=== PATIENT | female | born 1990 | race Caucasian/White ===

== ENCOUNTER 2020-11-02 10:43 | Outpatient (REF) | payer OTHER, SELFPAY ==
[2020-11-02 12:20] LABS: Estimated Average Glucose 111 mg/dL; Hemoglobin A1c % 5.5 %
[2020-11-02 12:21] LABS: Anion Gap 14 (12-20); Blood Urea Nitrogen 13 mg/dL (9-16); Calcium 9.5 mg/dL (8.4-10.2); Carbon Dioxide 30 mmol/L (22-29); Chloride 101 mmol/L (96-108); Cholesterol 165 mg/dL; Estimated Glomerular Filt Rate > 60; Glucose Fasting 98 mg/dL (60-99); HDL Cholesterol 47 mg/dL; LDL Cholesterol Calculated 99 mg/dl; Potassium 4.5 mmol/l (3.3-5.1); Sodium 140 mmol/L (135-145); Triglycerides 99 mg/dL
[2020-11-02 12:42] LABS: Thyroid Stimulating Hormone 2.46 uIU/mL (0.32-4.0)
== END 2020-11-02 10:44 | disposition home or self-care (01) ==
LOC: HO.LAB 10:43
PROVIDERS: PCP Internal Medicine; Visit Provider Internal Medicine
DX: I10 Essential (primary) hypertension (principal); R73.9 Hyperglycemia, unspecified; E78.00 Pure hypercholesterolemia, unspecified
CPT/HCPCS: 36415; 80048; 80061; 83036; 84443

== ENCOUNTER 2020-11-29 08:52 | Outpatient (REF) | payer OTHER, SELFPAY ==
--- NOTE | ~2020-11-29 | US_ITS ---
EXAMINATION: US DIAGNOSTIC ULTRASOUND BREAST, RIGHT US DIAGNOSTIC ULTRASOUND BREAST, LEFT CLINICAL INFORMATION: 30-year-old with bilateral intermittent breast pain. No discharge or palpable mass. No family history breast cancer. COMPARISON: Diagnostic left breast ultrasound 03/28/2018. TECHNIQUE: Ultrasound of the breasts is performed with real-time phillip scale imaging and color Doppler. Exam is targeted to the areas of clinical concern, left axilla and 2:00-3:00; right axilla and 9:00-10:00. FINDINGS: Right: There is no focal suspicious finding. There is no cystic or solid mass, architectural abnormality, duct ectasia, or edema in the soft tissue planes. Left: There is no focal suspicious finding. There is no cystic or solid mass, architectural abnormality, duct ectasia, or edema in the soft tissue planes. Results are discussed with the patient at time of visit using an heel gouger. US/US breast RT limited IMPRESSION: Normal study. ASSESSMENT: BI-RADS 1: Negative RECOMMENDATION: 1. Patient's intermittent bilateral breast pain should be managed based on the clinical impression. 2. Otherwise, routine annual screening mammography, beginning age 40, or earlier as clinical risk factors warrant.
--- NOTE | ~2020-11-29 | US_ITS ---
EXAMINATION: US DIAGNOSTIC ULTRASOUND BREAST, RIGHT US DIAGNOSTIC ULTRASOUND BREAST, LEFT CLINICAL INFORMATION: 30-year-old with bilateral intermittent breast pain. No discharge or palpable mass. No family history breast cancer. COMPARISON: Diagnostic left breast ultrasound 03/28/2018. TECHNIQUE: Ultrasound of the breasts is performed with real-time phillip scale imaging and color Doppler. Exam is targeted to the areas of clinical concern, left axilla and 2:00-3:00; right axilla and 9:00-10:00. FINDINGS: Right: There is no focal suspicious finding. There is no cystic or solid mass, architectural abnormality, duct ectasia, or edema in the soft tissue planes. Left: There is no focal suspicious finding. There is no cystic or solid mass, architectural abnormality, duct ectasia, or edema in the soft tissue planes. Results are discussed with the patient at time of visit using an senior interior designer. US/US breast LT limited IMPRESSION: Normal study. ASSESSMENT: BI-RADS 1: Negative RECOMMENDATION: 1. Patient's intermittent bilateral breast pain should be managed based on the clinical impression. 2. Otherwise, routine annual screening mammography, beginning age 40, or earlier as clinical risk factors warrant.
== END 2020-11-29 08:53 | disposition home or self-care (01) ==
LOC: HO.MAMMO 08:52
PROVIDERS: PCP Internal Medicine; Visit Provider Internal Medicine
DX: N64.4 Mastodynia (principal)
CPT/HCPCS: 76642

== ENCOUNTER 2021-08-23 12:45 | Outpatient (REF) | payer OTHER, SELFPAY ==
[2021-08-24 10:09] LABS: CT PCR NOT DETECTED (Not Detect.); NG PCR NOT DETECTED (Not Detect.)
== END 2021-08-23 12:46 | disposition home or self-care (01) ==
LOC: HO.LAB 12:45
PROVIDERS: PCP Internal Medicine; Visit Provider Obstetrics & Gynecology
DX: Z01.419 Encounter for gynecological examination (general) (routine) without abnormal findings (principal); N93.9 Abnormal uterine and vaginal bleeding, unspecified; Z87.42 Personal history of other diseases of the female genital tract
CPT/HCPCS: 87491; 87591; 99212

== ENCOUNTER 2021-09-05 08:09 | Outpatient (REF) | payer OTHER, SELFPAY ==
--- NOTE | ~2021-09-05 | FL_ITS ---
EXAMINATION: FL UPPER GI AIR-CONTRAST STUDY CLINICAL INFORMATION: Unspecified asthma. COMPARISON: None. TECHNIQUE: Acute upper GI air-contrast study was performed in upright and lying position. FINDINGS: Following oral administration of thick barium and effervescent granules, there is normal propagation of bolus from the oral cavity, through the esophagus and into stomach without any evidence of obstruction, narrowing or stricture. On placing patient supine and prone lying, the course, caliber and peristalsis of stomach, duodenal bulb are normal. No gastroesophageal reflux or hiatal hernia visualized. The mucosal pattern of the esophagus, stomach and the duodenum is normal. FLUOROSCOPY TIME: 2.4 minutes. DOSE AREA PRODUCT: 68.972 uGy-m2 (microgray-meter squared). FL/FL upper GI series IMPRESSION: Unremarkable upper GI exam.
== END 2021-09-05 08:10 | disposition home or self-care (01) ==
LOC: HO.XRAY 08:09
PROVIDERS: Visit Provider Internal Medicine
DX: J45.909 Unspecified asthma, uncomplicated (principal); K21.9 Gastro-esophageal reflux disease without esophagitis
CPT/HCPCS: 74240

== ENCOUNTER 2021-09-06 12:57 | Outpatient (REF) | payer OTHER, SELFPAY ==
--- NOTE | ~2021-09-06 | US_ITS ---
EXAMINATION: US PELVIS CLINICAL INFORMATION: Abnormal bleeding COMPARISON: Previous pelvic ultrasound May 2018 TECHNIQUE: Ultrasound of the pelvis is performed using both transabdominal and transvaginal transducers along with Doppler. Transvaginal imaging is performed due to inadequate visualization transabdominally. Exam is limited due to patient body habitus. FINDINGS: The uterus is anteverted and measures 10.9 x 3.6 x 4.8 cm in dimension. No focal uterine lesion is seen. Endometrial thickness is normal measuring 0.6 cm. There are nabothian cysts in the cervix. The right ovary is not seen. The left ovary is normal-appearing and measures 2.5 x 2.3 x 1.9 cm. There is no fluid in the pelvis. US/US pelvic and transvaginal IMPRESSION: Limited exam. Normal-appearing uterus, endometrium and left ovary. Right ovary not seen.
== END 2021-09-06 12:58 | disposition home or self-care (01) ==
LOC: HO.US 12:57
PROVIDERS: Visit Provider Obstetrics & Gynecology
DX: N93.9 Abnormal uterine and vaginal bleeding, unspecified (principal)
CPT/HCPCS: 76830; 76856

== ENCOUNTER 2021-09-30 07:16 | Outpatient (REF) | payer OTHER, SELFPAY ==
[2021-09-30 08:30] LABS: Hemoglobin 7.9 g/dl (12.0-16.0); Imm Gran Abs Auto 0.03 X10*3/uL (0.00-0.03); Imm Gran Pct Auto 0.3 % (0.0-0.4); MANUAL DIFF FLAG SCAN; Monocytes Absolute Auto 0.6 X10*3/uL (0.1-1.2); Neutrophils Percent Auto 73.1 % (45-73); SCAN SMEAR FLAG 1
[2021-09-30 08:33] LABS: Basophils Absolute Auto 0.1 X10*3/uL (0.0-0.2); Basophils Percent Auto 0.5 % (0-2); Eosinophils Absolute Auto 0.4 X10*3/uL (0.0-0.4); Eosinophils Percent Auto 3.9 % (0-4); Hematocrit 31.3 % (37.0-47.0); Immature Retic Fraction 16.8 % (3.0-15.9); Lymphocytes Absolute Auto 1.5 X10*3/uL (1.2-4.9); Lymphocytes Percent Auto 16.1 % (20-40); Mean Corpuscular HGB Conc 25.2 g/dl (31.0-35.0); Mean Corpuscular Hemoglobin 15.8 pg (27.0-33.0); Monocytes Percent Auto 6.1 % (2-11); Neutrophils Absolute Auto 6.9 x10*3/uL (2.0-8.3); Platelet Count 467 X10*3/uL (160-400); Red Blood Count 5.01 X10*6/uL (4.20-5.50); Red Cell Distribution Width 21.2 % (11.0-16.0); Retic HGB Equivalent 15.9 pg (30.0-35.0); Reticulocytes Absolute 0.101 X10*6/uL (0.026-0.095); White Blood Count 9.4 X10*3/uL (4.8-10.8)
[2021-09-30 08:34] LABS: Mean Corpuscular Volume 62.5 fL (80.0-98.0); PLT ABN DIST 1
[2021-09-30 08:59] LABS: SLIDE REVIEW VERIFIED
[2021-09-30 09:11] LABS: Alanine Aminotransferase 14 U/L (0-31); Albumin Level 4.1 g/dL (3.5-5.0); Alkaline Phosphatase 80 U/L (39-117); Anion Gap 11 (12-20); Aspartate Amino Transferase 12 U/L (5-31); Bilirubin Total 0.3 mg/dL (0.0-1.0); Blood Urea Nitrogen 11 mg/dL (9-16); Calcium 9.8 mg/dL (8.4-10.2); Carbon Dioxide 29 mmol/L (22-29); Chloride 102 mmol/L (96-108); Cholesterol 147 mg/dL; Estimated Glomerular Filt Rate > 60; Glucose Random 103 mg/dL (60-115); HDL Cholesterol 40 mg/dL; Iron 15 mcg/dL (30-160); LDL Cholesterol Calculated 90 mg/dl; Percent Iron Saturation 3 % (15-50); Potassium 4.3 mmol/L (3.3-5.1); Sodium 138 mmol/L (135-145); Total Iron Binding Capacity 436 mcg/dL (228-428); Total Protein 7.8 g/dL (6.5-8.0); Triglycerides 89 mg/dL; Unsaturated Iron Binding 421 ug/dL
[2021-09-30 09:18] LABS: Ferritin 4 ng/mL (10-122); Thyroid Stimulating Hormone 2.13 uIU/mL (0.32-4.0); Vitamin D 25-OH Total 18.3 ng/mL (>30)
[2021-09-30 09:51] LABS: HCG Quantitative < 2 mIU/mL; TSH reflex Free T4 2.33 uIU/mL (0.32-4.0)
[2021-09-30 10:54] LABS: Folate 12.8 ng/mL (> or = 4.0); Vitamin B12 498 pg/mL (200-900)
[2021-09-30 14:00] LABS: Estimated Average Glucose 94 mg/dL; Hemoglobin A1c % 4.9 %
== END 2021-09-30 07:17 | disposition home or self-care (01) ==
LOC: HO.LAB 07:16
PROVIDERS: Absent Provider Obstetrics & Gynecology; PCP Internal Medicine; Visit Provider Internal Medicine
DX: D50.0 Iron deficiency anemia secondary to blood loss (chronic) (principal); R73.02 Impaired glucose tolerance (oral); N93.9 Abnormal uterine and vaginal bleeding, unspecified; I10 Essential (primary) hypertension; K21.9 Gastro-esophageal reflux disease without esophagitis; E78.00 Pure hypercholesterolemia, unspecified
CPT/HCPCS: 36415; 80053; 80061; 82306; 82607; 82728; 82746; 83036; 83540; 84439; 84443; 84702; 85025; 85045

== ENCOUNTER 2021-10-01 07:48 | Emergency (ER) | payer OTHER, SELFPAY ==
[2021-10-01] VITALS (7 sets, daily range): BP systolic 182–216; BP diastolic 88–106; PULSE 89–105; RESP 16–21; TEMP 36.4–36.9; O2SAT 98–100; BMI 49.4
--- NOTE | 2021-10-01 08:49 | ED.GENADULT ---
HPI - General Adult General Chief complaint: General Medical Stated complaint: low red blood count Time Seen by Provider: 10/01/21 08:05 Source: patient Mode of arrival: ambulatory Limitations: no limitations History of Present Illness HPI narrative: 31-year-old female with a history of menometrorrhagia, anemia, obesity, asthma, dysphagia, GERD who presents to the ER with low hemoglobin on routine blood work with Dr. Skinner yesterday. Her hemoglobin was 7.9. She reports her baseline hemoglobin is usually in the tender 11 range. She has been on p.o. iron and is taking progesterone for heavy uterine bleeding. She states her last menstrual cycle was end of July and early August. She reports her periods are regular and at times very very heavy other times are normal. She has nose chest pain, shortness of breath, fatigue, lightheadedness, dizziness. She had does have a cough at nighttime that Dr. Skinner told her could be due to her anemia. MD complaint: low hemoglobin Severity: mild Relieving factors: none Exacerbating factors: other (night - cough) Associated symptoms: denies other symptoms Treatments prior to arrival: none Related Data Home Medications Medication Instructions Recorded Confirmed ascorbate calcium (vitamin C) 500 500 mg PO DAILY 08/04/20 08/05/21 mg tablet famotidine 20 mg tablet (Pepcid) 20 mg PO DAILY 08/04/20 08/05/21 ferrous sulfate 325 mg (65 mg 325 mg PO DAILY 08/04/20 08/05/21 iron) tablet (Feosol) Previous Rx's Medication Instructions Recorded diphenhydramine HCl 25 mg tablet 25 mg PO BEDTIME PRN 30 Days #30 08/04/20 (Benadryl Allergy) tab metoprolol succinate 100 mg 100 mg PO DAILY 90 Days #90 tab 03/07/21 tablet,extended release 24 hr cyanocobalamin (vitamin B-12) 1,000 mcg PO DAILY #90 cap 08/05/21 1,000 mcg capsule albuterol sulfate 90 mcg/actuation 2 puff PO QID PRN #8.5 ea 08/27/21 aerosol inhaler (ProAir HFA) progesterone micronized 200 mg 200 mg PO BEDTIME #30 cap 08/29/21 capsule (Prometrium) Allergies Allergy/AdvReac Type Severity Reaction Status Date / Time bee pollen [BEE STINGS] Allergy Mild ARM SWELLS Verified 08/23/21 12:56 AND GET RED crab [CRAB] Allergy Unknown FACE Verified 08/23/21 12:56 SWELLING, ITCHY enalapril Allergy Unknown Unknown Verified 08/23/21 12:56 Review of Systems Review of Systems: Constitutional: No Fever, No Chills ENT/Mouth: No sore throat, No Rhinorrhea, No Swallowing Difficulty Cardiovascular: No Chest Pain, No SOB Respiratory: + Cough, No Sputum, No Wheezing, No dyspnea Gastrointestinal: No Nausea, No Vomiting, No Diarrhea, No abdominal Pain Genitourinary: No Dysuria, No Urinary Frequency, No Hematuria, No vaginal bleeding Musculoskeletal: No joint pain, No Myalgias Skin: No Skin Lesions, No rash Neuro: No Weakness, No Numbness, No Dizziness, No Headache Psych: No Anxiety/Panic, No Depression Heme/Lymph: No Bruising, No Lymphadenopathy PMFSH Past Medical History Attestation statement: The following information was validated with the patient. Medical History Allergic rhinitis Anxiety ASCUS with positive high risk HPV Asthma DANY I (cervical intraepithelial neoplasia I) GERD (gastroesophageal reflux disease) High blood sugar Hypertension Iron deficiency anemia Menometrorrhagia Obesities, morbid Vitamin B12 deficiency Surgical History No pertinent past surgical history Family History Family History Father No problems noted. Mother Breast cancer Hypertension Maternal Grandfather Hypertension FH: prostate cancer Paternal Grandfather Hypertension Stroke Maternal Aunt Hypertension Diabetes Ovarian cancer Paternal Grandmother Diabetes Maternal Grandmother Myocardial infarct Maternal Uncle Bipolar 1 disorder Social History Social History Housing: Apartment Alcohol intake: never Patient Tobacco Use Status: Never used Tobacco Tobacco use type: Cigarette e-Cigarette/Vaping Use: Never Used Second Hand Smoke Exposure: No Use of substances other than those prescribed or required for medical reasons: No Advance Directives: No Advance Directives Information Provided: No service: No Current occupational status: employed Physical Exam Vital Signs: Vital Signs: Last Vital Signs Temp 97.6 F 10/01/21 11:27 Pulse 91 10/01/21 13:03 Resp 18 10/01/21 13:03 BP 182/88 H 10/01/21 13:03 Pulse Ox 100 10/01/21 13:03 BMI result Body Mass Index 49.4 Appearance: Alert. Oriented X3. No acute distress. Eyes: Pupils equal, round and reactive to light. Sclera are pale. ENT: Pharynx normal. Neck: Normal inspection. Neck supple. CVS: Normal heart rate and rhythm. Pulses normal. Respiratory: No respiratory distress. Breath sounds normal. Abdomen: Obese, Soft and nontender. +BS x4 Skin: Skin warm and dry. Normal skin color. Normal skin turgor. No rashes. Extremities: No lower extremity edema. Neuro: Oriented X 3. No motor deficit. No sensory deficit. Course Course Course Narrative: 31 y/o female with history of menometorrhagia and iron deficiency anemia presenting with hemoglobin 7.9. Hematocrit is 31.9 and she has no symptoms of acute anemia. Will repeat labs today. Reevaluation(s) Reevaluation #1: Hemoglobin 8.1. No symptoms of acute anemia. No indication for blood transfusion at this time. She follows with Dr. Mota and has gotten IV iron in the past. Advised to f/u back up with Dr. Mota and in the mean time increase her iron to BID. Stable for d/c home. Reevaluation #2: Prior to d/c SBP noted to be 210/100, symptomatic. She took her metoprolol at home this morning. She reports whenever she is in the hospital or in the doctors off her BP is very high but when she checks it at home it is usually 120/80. Will give another dose of PO lopressor and reassess. Reevaluation #3: BP remains elevated 200 systolic. She remains symptom free. She is anxious. Will give dose of PO ativan as well as PO Norvasc to help improve her BP. Additional Reevaluation(s): BP improved 180/80. Stable for d/c home with close monitoring of her BP and follow up with her PCP and Dr. Mota Medical Decision Making Lab Data Result diagrams: 10/01/21 08:53 10/01/21 08:53 Labs: Lab Results 10/01/21 10/01/21 10/01/21 Range/Units 08:53 08:53 08:53 WBC 10.3 (4.8-10.8) X10*3/uL RBC 5.16 (4.20-5.50) X10*6/uL Hgb 8.2 L (12.0-16.0) g/dl Hct 32.0 L (37.0-47.0) % MCV 62.0 L (80.0-98.0) fL MCH 15.9 L (27.0-33.0) pg MCHC 25.6 L (31.0-35.0) g/dl RDW 20.9 H (11.0-16.0) % Plt Count 505 H (160-400) X10*3/uL MPV 9.8 (9.4-12.3) fL Immature Gran % (Auto) 0.4 (0.0-0.4) % Neut % (Auto) 81.5 H (45-73) % Lymph % (Auto) 10.6 L (20-40) % [place] % (Auto) 5.5 (2-11) % Eos % (Auto) 1.6 (0-4) % Baso % (Auto) 0.4 (0-2) % Lymph # (Auto) 1.1 L (1.2-4.9) X10*3/uL [place] # (Auto) 0.6 (0.1-1.2) X10*3/uL Eos # (Auto) 0.2 (0.0-0.4) X10*3/uL Baso # (Auto) 0.0 (0.0-0.2) X10*3/uL Abs Immat Gran (auto) 0.04 H (0.00-0.03) X10*3/uL Absolute Neuts (auto) 8.4 H (2.0-8.3) x10*3/uL Absolute Nucleated RBC 0.000 (0.0-0.012) X10*3/uL Nucleated RBC % (auto) 0.0 (0.0-0.2) /100WBC Smear Tech's Comments VERIFIED Absolute Retic 0.093 (0.026-0.095) X10*6/uL Percent Retic 1.8 (0.5-1.8) % Immature Retic Fraction 15.5 (3.0-15.9) % Retic Hgb Equivalent 16.2 L (30.0-35.0) pg Sodium 138 (135-145) mmol/L Potassium 4.6 (3.3-5.1) mmol/L Chloride 102 (96-108) mmol/L Carbon Dioxide 29 (22-29) mmol/L Anion Gap 12 (12-20) BUN 10 (9-16) mg/dL Creatinine 0.82 (0.5-1.4) mg/dL Estim Creat Clear Calc 125.1 Estimated GFR > 60 Random Glucose 116 H (60-115) mg/dL Calcium 10.0 (8.4-10.2) mg/dL Magnesium 2.1 (1.6-2.6) mg/dL Iron 15 L (30-160) mcg/dL TIBC 459 H (228-428) mcg/dL % Saturation 3 L (15-50) % Unsat Iron Binding 444 ug/dL Total Bilirubin 0.4 (0.0-1.0) mg/dL Direct Bilirubin 0.2 (0.0-0.5) mg/dL AST 12 (5-31) U/L ALT 15 (0-31) U/L Alkaline Phosphatase 84 (39-117) U/L Total Protein 8.2 H (6.5-8.0) g/dL Albumin 4.1 (3.5-5.0) g/dL Urine Color Urine Appearance Urine pH (5.0-8.0) Ur Specific [place] (1.005-1.025) Urine Protein (NEG-TRACE) MG/DL Urine Glucose (UA) (NEG) MG/DL Urine Ketones (NEG) MG/DL Urine Blood (NEG) Urine Nitrite (NEG) Ur Leukocyte Esterase (NEG) Urine RBC (0) /HPF Urine WBC (0-4) /HPF Ur Squamous Epith Cells /LPF Urine Bacteria /LPF Urine Test (NEGATIVE) Blood Type B Positive Antibody Screen NEGATIVE 10/01/21 10/01/21 Range/Units 08:58 08:58 WBC (4.8-10.8) X10*3/uL RBC (4.20-5.50) X10*6/uL Hgb (12.0-16.0) g/dl Hct (37.0-47.0) % MCV (80.0-98.0) fL MCH (27.0-33.0) pg MCHC (31.0-35.0) g/dl RDW (11.0-16.0) % Plt Count (160-400) X10*3/uL MPV (9.4-12.3) fL Immature Gran % (Auto) (0.0-0.4) % Neut % (Auto) (45-73) % Lymph % (Auto) (20-40) % [place] % (Auto) (2-11) % Eos % (Auto) (0-4) % Baso % (Auto) (0-2) % Lymph # (Auto) (1.2-4.9) X10*3/uL [place] # (Auto) (0.1-1.2) X10*3/uL Eos # (Auto) (0.0-0.4) X10*3/uL Baso # (Auto) (0.0-0.2) X10*3/uL Abs Immat Gran (auto) (0.00-0.03) X10*3/uL Absolute Neuts (auto) (2.0-8.3) x10*3/uL Absolute Nucleated RBC (0.0-0.012) X10*3/uL Nucleated RBC % (auto) (0.0-0.2) /100WBC Smear Tech's Comments Absolute Retic (0.026-0.095) X10*6/uL Percent Retic (0.5-1.8) % Immature Retic Fraction (3.0-15.9) % Retic Hgb Equivalent (30.0-35.0) pg Sodium (135-145) mmol/L Potassium (3.3-5.1) mmol/L Chloride (96-108) mmol/L Carbon Dioxide (22-29) mmol/L Anion Gap (12-20) BUN (9-16) mg/dL Creatinine (0.5-1.4) mg/dL Estim Creat Clear Calc Estimated GFR Random Glucose (60-115) mg/dL Calcium (8.4-10.2) mg/dL Magnesium (1.6-2.6) mg/dL Iron (30-160) mcg/dL TIBC (228-428) mcg/dL % Saturation (15-50) % Unsat Iron Binding ug/dL Total Bilirubin (0.0-1.0) mg/dL Direct Bilirubin (0.0-0.5) mg/dL AST (5-31) U/L ALT (0-31) U/L Alkaline Phosphatase (39-117) U/L Total Protein (6.5-8.0) g/dL Albumin (3.5-5.0) g/dL Urine Color YELLOW Urine Appearance HAZY Urine pH 7.0 (5.0-8.0) Ur Specific [place] 1.010 (1.005-1.025) Urine Protein 2+ H (NEG-TRACE) MG/DL Urine Glucose (UA) NEG (NEG) MG/DL Urine Ketones NEG (NEG) MG/DL Urine Blood NEG (NEG) Urine Nitrite NEG (NEG) Ur Leukocyte Esterase NEG (NEG) Urine RBC 0 (0) /HPF Urine WBC 1-4 (0-4) /HPF Ur Squamous Epith Cells 3+ /LPF Urine Bacteria TRACE /LPF Urine Test NEGATIVE (NEGATIVE) Blood Type Antibody Screen Critical Care Time Critical Care Time Critical Care Time: Yes Total Critical Care Time: 35 Attestation: I have personally provided critical care time exclusive of time spent on separately billable procedures. Time includes review of lab data, radiology results, frequent bedside reassessments, and monitoring for potential decompensation. Intervention performed as documented. Discharge Plan Discharge Clinical Impression: Microcytic anemia, Hypertension Patient Disposition: Home, Self-Care Instructions: Iron Deficiency Anemia (ED), Hypertension (ED) Additional Instructions: Your blood counts improved and you do not require a blood transfusion at this time. Recommend increasing your iron supplementation to 2 times per day. This may cause constipation, so you may need to add a stool softner or a gentle laxative. Your blood pressure was significantly elevated while in the ED. Recommend monitoring 2 times per day and keeping a record for your doctor. If you develop chest pain, severe headache, blurry vision or any other concerning symptoms call 911 or come back to the ER for further evaluation. Prescriptions: No Action metoprolol succinate 100 mg tablet extended release 24 hr 100 mg PO DAILY 90 Days Qty: 90 RF: 2 albuterol sulfate [ProAir HFA] 90 mcg/actuation HFA aerosol inhaler 2 puff PO QID PRN (Reason: for wheezing) Qty: 8.5 RF: 0 progesterone micronized [Prometrium] 200 mg capsule 200 mg PO BEDTIME Qty: 30 RF: 3 ferrous sulfate [Feosol] 325 mg (65 mg iron) tablet 325 mg PO DAILY RF: 0 ascorbate calcium (vitamin C) 500 mg tablet 500 mg PO DAILY RF: 0 famotidine [Pepcid] 20 mg tablet 20 mg PO DAILY RF: 0 diphenhydramine HCl [Benadryl Allergy] 25 mg tablet 25 mg PO BEDTIME PRN (Reason: allergic symptoms) 30 Days Qty: 30 RF: 3 cyanocobalamin (vitamin B-12) 1,000 mcg capsule 1,000 mcg PO DAILY Qty: 90 RF: 0 Referrals: Samantha Mota MD [Physician] - 3 days Print Language: English
[2021-10-01 09:09] LABS: UPreg QC Valid YES
[2021-10-01 09:10] LABS: Appearance Urine HAZY; Color Urine YELLOW; Glucose Urine UA NEG (NEG); Leukocyte Esterase Urine NEG (NEG); Nitrite Urine NEG (NEG); UACC Culture Trigger NO; Urine Blood NEG (NEG); Urine Ketones NEG (NEG); Urine Pregnancy NEGATIVE (NEGATIVE); Urine Protein 2+ MG/DL (NEG-TRACE)
[2021-10-01 09:11] LABS: Eosinophils Absolute Auto 0.2 X10*3/uL (0.0-0.4); Hemoglobin 8.2 g/dl (12.0-16.0); Imm Gran Abs Auto 0.04 X10*3/uL (0.00-0.03); Imm Gran Pct Auto 0.4 % (0.0-0.4); Lymphocytes Percent Auto 10.6 % (20-40); MANUAL DIFF FLAG SCAN; SCAN SMEAR FLAG 1
[2021-10-01 09:13] LABS: Basophils Percent Auto 0.4 % (0-2); Eosinophils Percent Auto 1.6 % (0-4); Immature Retic Fraction 15.5 % (3.0-15.9); Lymphocytes Absolute Auto 1.1 X10*3/uL (1.2-4.9); Mean Corpuscular HGB Conc 25.6 g/dl (31.0-35.0); Mean Corpuscular Hemoglobin 15.9 pg (27.0-33.0); Mean Platelet Volume 9.8 fL (9.4-12.3); Monocytes Absolute Auto 0.6 X10*3/uL (0.1-1.2); Monocytes Percent Auto 5.5 % (2-11); Neutrophils Absolute Auto 8.4 x10*3/uL (2.0-8.3); Neutrophils Percent Auto 81.5 % (45-73); Platelet Count 505 X10*3/uL (160-400); Red Blood Count 5.16 X10*6/uL (4.20-5.50); Red Cell Distribution Width 20.9 % (11.0-16.0); Retic HGB Equivalent 16.2 pg (30.0-35.0); Reticulocyte Percent 1.8 % (0.5-1.8); Reticulocytes Absolute 0.093 X10*6/uL (0.026-0.095); White Blood Count 10.3 X10*3/uL (4.8-10.8)
[2021-10-01 09:25] LABS: Alanine Aminotransferase 15 U/L (0-31); Albumin Level 4.1 g/dL (3.5-5.0); Alkaline Phosphatase 84 U/L (39-117); Anion Gap 12 (12-20); Aspartate Amino Transferase 12 U/L (5-31); Bilirubin Direct 0.2 mg/dL (0.0-0.5); Bilirubin Total 0.4 mg/dL (0.0-1.0); Blood Urea Nitrogen 10 mg/dL (9-16); Carbon Dioxide 29 mmol/L (22-29); Chloride 102 mmol/L (96-108); Creatinine Clr Calc Pharmacy 125.1; Estimated Glomerular Filt Rate > 60; Glucose Random 116 mg/dL (60-115); Iron 15 mcg/dL (30-160); Magnesium 2.1 mg/dL (1.6-2.6); Percent Iron Saturation 3 % (15-50); Potassium 4.6 mmol/L (3.3-5.1); Sodium 138 mmol/L (135-145); Total Iron Binding Capacity 459 mcg/dL (228-428); Total Protein 8.2 g/dL (6.5-8.0); Unsaturated Iron Binding 444 ug/dL
[2021-10-01 09:26] LABS: Bacteria Urine TRACE /LPF; RBC Urine 0 /HPF (0); Squamous Epithelial Cell Urine 3+ /LPF
[2021-10-01 09:31] LABS: PLT ABN DIST 1
[2021-10-01 09:37] LABS: SLIDE REVIEW VERIFIED
[2021-10-01] MEDS: Metoprolol Tartrate 50 MG TABLET PO (10:44)
[2021-10-01] MEDS: amLODIPine Besylate 5 MG TABLET 10 MG PO (11:42)
[2021-10-01] MEDS: LORazepam 1 MG TABLET PO (11:43)
--- NOTE | 2021-10-01 12:24 | PC.NURSE ---
report received from Starr SOLOMON.
== END 2021-10-01 13:42 | disposition home or self-care (01) ==
PROVIDERS: Physician Assistant; Emergency Provider Emergency Medicine; PCP Internal Medicine
DX: D50.9 Iron deficiency anemia, unspecified (principal); I10 Essential (primary) hypertension; N92.1 Excessive and frequent menstruation with irregular cycle
CPT/HCPCS: 36415; 80048; 80076; 81001; 81025; 83540; 83735; 85025; 85045; 86850; 86900; 86901; 99284; 99291

== ENCOUNTER 2022-01-19 13:29 | Outpatient (REF) | payer OTHER, SELFPAY | END 2022-01-19 13:30 | disposition home or self-care (01) | LOC: HO.LAB 13:29 | PROVIDERS: PCP Internal Medicine; Visit Provider Obstetrics & Gynecology | DX: N93.9 Abnormal uterine and vaginal bleeding, unspecified (principal) | CPT/HCPCS: 58100; 81025; 88305 ==

== ENCOUNTER → 2022-02-07 10:01 | Outpatient (BNVA) | payer OTHER, SELFPAY | PROVIDERS: PCP Internal Medicine; Visit Provider Obstetrics & Gynecology | DX: N93.9 Abnormal uterine and vaginal bleeding, unspecified (principal) | CPT/HCPCS: 99212 ==

== ENCOUNTER 2023-08-08 11:19 | Outpatient (AMB) | payer OTHER, SELFPAY ==
--- NOTE | 2023-08-08 11:21 | MHC.PC.OV ---
Vital Signs 08/08/23 11:22 Height 5 ft 3 in Weight 127.006 kg BMI 49.6 BP 202/98 H Blood Pressure Location Lt brachial Position Sitting Pulse 110 H Pulse Source Pulse Oximeter Pulse Oximetry (%) 95 Oxygen Delivery Method Room Air Intake Visit Reasons: PE+NEEDS PHQ9/THRIVE Intake Note: Patient here for a physical exam Automation Tester Required: Yes Automation Tester Language: Amharic Accompanied by: Self / Same As Patient Allergies bee pollen [BEE STINGS] Allergy (Mild, Verified 08/08/23 11:23) ARM SWELLS AND GET RED crab [CRAB] Allergy (Unknown, Verified 08/08/23 11:23) FACE SWELLING, ITCHY enalapril Allergy (Unknown, Verified 08/08/23 11:23) Unknown Medication List - Last Reconciled 08/08/23 by Riccardo Skinner MD albuterol sulfate 90 mcg/actuation (ProAir HFA) 2 puffs PO QID PRN ascorbate calcium (vitamin C) 500 mg PO DAILY cyanocobalamin (vitamin B-12) 1,000 mcg PO DAILY diphenhydramine HCl (Benadryl Allergy) 25 mg PO BEDTIME PRN 30 days famotidine (Pepcid) 20 mg PO DAILY ferrous sulfate (Feosol) 325 mg PO DAILY 90 days metoprolol succinate ER 100 mg PO DAILY 90 days progesterone micronized (Prometrium) 200 mg PO BEDTIME Tobacco use date assessed: 08/08/23 Dental Screening Dental Screen Date: 08/08/23 Did you have a dental visit in the last 12 months?: Yes Did you have a dental problem in the last 6 months where you did not have access to dental care?: No Was dental information given to patient?: Patient has dentist HPI PE+NEEDS PHQ9/THRIVE HPI Details 33-year-old morbidly obese female with asthma, impaired glucose tolerance GERD iron deficiency anemia hypertension coming in for physical exam. Last seen in July 2022. RAFAELA [id number] interpret states BP is high here in the office and normal at home. goes to exercise plan- flu-04/2023 [facility] Medical History (Updated 08/08/23 @ 12:10 by Riccardo Skinner MD) Dysphagia Anxiety ASCUS with positive high risk HPV DANY I (cervical intraepithelial neoplasia I) Obesities, morbid Allergic rhinitis High blood sugar Asthma Menometrorrhagia GERD (gastroesophageal reflux disease) Iron deficiency anemia Hypertension Vitamin B12 deficiency Surgical History No pertinent past surgical history Family History (Updated 08/08/23 @ 11:50 by Riccardo Skinner MD) Father No problems noted. Mother Breast cancer Hypertension Maternal Grandfather Hypertension FH: prostate cancer Paternal Grandfather Hypertension Stroke Myocardial infarct Maternal Aunt Hypertension Diabetes Ovarian cancer Paternal Grandmother Diabetes Maternal Grandmother Myocardial infarct Maternal Uncle Bipolar 1 disorder Social History Housing: Apartment Alcohol intake: never Patient Tobacco Use Status: Never used Tobacco e-Cigarette/Vaping Use: Never Used Second Hand Smoke Exposure: No service: No Current occupational status: employed Current occupational exposures/hazards: No Cognitive needs: No Hearing needs: No Vision needs: No Female Reproductive History Menstrual Age of Menarche: 12 Questionnaire PHQ-9 Over the last 2 weeks, how often have you been bothered by any of the following problems? 1. Little interest or pleasure in doing things: not at all 2. Feeling down, depressed, or hopeless: not at all 3. Trouble falling or staying asleep, or sleeping too much: not at all 4. Feeling tired or having little energy: not at all 5. Poor appetite or overeating: not at all 6. Feeling bad about yourself - or that you are a failure or have let yourself or your family down: not at all 7. Trouble concentrating on things, such as reading the newspaper or watching television: not at all 8. Moving or speaking so slowly that other people could have noticed. Or the opposite - being so fidgety or restless that you have been moving around a lot more than usual: not at all 9. Thoughts that you would be better off or of hurting yourself in some way: not at all Total score: 0 Source: Developed by Drs. López Versa, Jenniffer Bush, Hilton Rothman and colleagues, with an educational tiffanie from [employer]. Thrive Questionnaire Date Thrive assessed: 08/08/23 I am a: Patient What is your living situation today?: I have a steady place to live Within the past 12 months, did the food you bought not last and you didn't have the money to get more?: Never true Within the past 12 months, did you worry whether your food would run out before you got money to buy more?: Never true Do you have trouble paying for medicines?: No Do you have trouble getting transportation to medical appointments?: No Do you have trouble paying your heating and electricity bill?: No Do you have trouble taking care of your child, family member or friend?: No Do you have trouble with day-to-day activities such as bathing, preparing meals, shopping, managing finances, etc.?: No Are you currently unemployed and looking for a job?: No Are you interested in more education?: No Please select the resources that you would like help with: None Currently or been in a relationship where the following occur: no concerns reported AUDIT C Alcohol Use Questionnaire (AUDIT-C) 1. How often do you have a drink containing alcohol?: Never Total Score: 0 LEATHA-7 AMB Questionnaire LEATHA-7 Date LEATHA - 7 assessed: 08/08/23 Feeling nervous, anxious, or on edge: 1 = Several days Not being able to stop or control worryin = Not at all Worrying too much about different things: 0 = Not at all Trouble relaxin = Not at all Being so restless that it is hard to sit still: 0 = Not at all Becoming easily annoyed or irritable: 0 = Not at all Feeling afraid as if something awful might happen: 0 = Not at all Total LEATHA-7 score (0-4 normal; 5-9 mild; 10-14 moderate; 15-21 severe): 1 Source: Developed by Drs. López Veras, Jenniffer Bush, Hilton Rothman and colleagues, with an educational tiffanie from [employer]. Review of Systems Const Denies poor appetite and Denies weakness Eyes Denies no additional complaints ENT Reports Normal hearing present, Denies dizziness, Denies nasal congestion, Denies tinnitus and Denies sore throat Card Denies chest pain, Denies syncope, Denies rapid heart rate and Denies dyspnea Resp Denies cough and Denies dyspnea GI Denies change in stool character, Reports constipation, Denies diarrhea, Denies nausea and Denies vomiting Denies urinary frequency, Denies difficulty voiding and Denies dysuria Neuro Reports Normal hearing present, Denies confusion, Denies dizziness, Denies syncope and Denies weakness Psych Denies confusion Physical exam (Primary Care) Vital Signs: Last Vital Signs Pulse 110 H 08/08/23 11:22 BP 202/98 H 08/08/23 11:22 Pulse Ox 95 08/08/23 11:22 Oxygen Delivery Method Room Air 08/08/23 11:22 BMI result Body Mass Index 49.6 Tobacco/Smoking Status: Tobacco use Status Tobacco use date assessed 08/08/23 08/08/23 11:27 Patient Tobacco Use Status Never used Tobacco 08/08/23 11:27 Tobacco use type 08/08/23 11:27 e-Cigarette/Vaping Use Never Used 08/08/23 11:27 PHQ-9: PHQ-9 Score PHQ-9: Total score 0 08/08/23 11:40 Thrive Assessment: Date of Thrive Assessment Date Thrive assessed 08/08/23 08/08/23 11:27 Currently or been in a relationship where the following occur: no concerns reported Const General: alert and awake; No confusion Orientation/consciousness: No confusion HENMT Head: Yes normocephalic Ears: external ears normal and TM's normal bilaterally Face and sinus: Yes normal facial exam Mouth: moist mucous membranes Throat: Yes tonsils normal Eyes Conjunctivae: conjunctivae normal Pupils: Equal, round and reactive pupils present and Pupil accommodation reflex normal Direct Ophthalmoscopy: normal light reflex Neck Neck: No lymphadenopathy Thyroid: Thyroid normal Chest Chest palpation & inspection: normal inspection of the chest Resp Effort & Inspection: normal respiratory effort and no audible wheezes Auscultation: clear to auscultation bilaterally, no crackles, no wheezes and lung sounds not diminished Cardio Rate: regular rate Rhythm: regular rhythm Peripheral pulses: radial pulses present and dorsalis pedis present GI Palpation (GI): no masses Auscultation: normal bowel sounds and normoactive bowel sounds Rectal Exam - Female: deferred Skin General skin exam: no rashes or lesions noted Rashes: no rashes Neuro General: deep tendon reflexes 2+ bilaterally and No confusion Cranial nerves: Yes Equal, round and reactive pupils present, Yes Midline tongue present, Yes Normal hearing present and Yes Ability to bilaterally elevate shoulders present Cognition (Neuro): normal cognition Gait exam (Neuro): Normal gait present Motor exam (neuro): 5/5 motor strength present throughout Deep tendon reflexes (DTR's): Right brachioradialis reflex intensity grade: 2+, Left brachioradialis reflex intensity grade: 2+, Right patellar reflex intensity grade: 2+ and Left patellar reflex intensity grade: 2+ Extrem General: No edema Office Procedures Flu Questionnaire Does the patient have a severe egg allergy?: No Does the patient have severe life threatening allergies?: No Does the patient have a fever or illness today?: No Has the patient ever had Guillain-[place] Syndrome?: No Has the patient ever had any past reaction to a flu shot?: No Immunizations flu vacc [id number] 6mos up(PF) 60 mcg(15 mcgx4)/0.5 mL IM syringe Performing Provider: Riccardo Skinner MD Performing Location: [facility] Administered by: JONNY Purdy on 08/08/23 12:22 Dose Route Admin Location Dispensed Lot Number Expiration Date NDC Date Pitter 0.5 mL IM Left Deltoid 0.5 mL [id number] 04/20/24 [id number] [employer] VIS Given Date VIS Provided VIS Publication Date 08/08/23 Single Vaccine 21 Eligibility Eligibility Date Funding Source Not [facility] Eligible 08/08/23 Private Assessment and Plan Assessment & Plan (1) Annual physical exam: Code(s): Z00.00 - Encounter for general adult medical examination without abnormal findings (2) Obesities, morbid: Code(s): E66.01 - Morbid (severe) obesity due to excess calories Plan: Diet and exercise noted 10 lb weight loss (3) Iron deficiency anemia: Code(s): D50.9 - Iron deficiency anemia, unspecified Qualifiers: Iron deficiency anemia type: chronic blood loss Qualified Code(s): D50.0 - Iron deficiency anemia secondary to blood loss (chronic) Plan: Blood work needs to be repeated (4) Hypertension: Comment: white coat hypertension November 2019 echo May 2017 ejection fraction 55% Code(s): I10 - Essential (primary) hypertension Qualifiers: Hypertension type: primary hypertension Qualified Code(s): I10 - Essential (primary) hypertension Plan: Continue with blood pressure medication. Decrease salt intake and exercise patient is supposed to be on metoprolol 100 mg once a day (5) GERD (gastroesophageal reflux disease): Code(s): K21.9 - Gastro-esophageal reflux disease without esophagitis Qualifiers: Esophagitis presence: without esophagitis Qualified Code(s): K21.9 - Gastro-esophageal reflux disease without esophagitis Plan: Avoid the foods that causes that usually spicy foods, tomato products, juices, coffee, soda and foods that your sensitive to. After eating do not lie down, allow 3-4 hours before in lie down. And keep the head of bed above 30 degrees to avoid the acid from going up. (6) Impaired glucose tolerance: Code(s): R73.02 - Impaired glucose tolerance (oral) Plan: Decrease the amount of carbohydrate intake, pasta, bread, rice and potatoes are all sugar and that is aside from all the sweet stuff, remember that fruits are good but they are Sweet also. (7) Asthma: Code(s): J45.909 - Unspecified asthma, uncomplicated Plan: Continue with inhaler albuterol (8) Menometrorrhagia: Code(s): N92.1 - Excessive and frequent menstruation with irregular cycle Plan: Patient is advised to follow-up with OB gynecology (9) Dysphagia: Code(s): R13.10 - Dysphagia, unspecified Plan: UGI series normal (10) Eczema: Comment: R breast area medial Code(s): L30.9 - Dermatitis, unspecified Orders: Orders Complete Blood Count Auto Diff Today D50.0 - Iron deficiency anemia secondary to blood loss (chronic) IRON PROFILE Today D50.0 - Iron deficiency anemia secondary to blood loss (chronic) Reticulocyte Count Today D50.0 - Iron deficiency anemia secondary to blood loss (chronic) Vitamin B12 and Folate Today D50.0 - Iron deficiency anemia secondary to blood loss (chronic) Thyroid Stimulating Hormone Today I10 - Essential (primary) hypertension Hemoglobin A1c Today R73.02 - Impaired glucose tolerance (oral) Ferritin Today D50.0 - Iron deficiency anemia secondary to blood loss (chronic) Free T4 (Free Thyroxine) Today I10 - Essential (primary) hypertension Comprehensive Met. Panel Today I10 - Essential (primary) hypertension Lipid Panel Today E78.00 - Pure hypercholesterolemia, unspecified, I10 - Essential (primary) hypertension UA w Microscopic Today I10 - Essential (primary) hypertension Influenza [id number] Immunization Today Z23 - Encounter for immunization Medications: New triamcinolone acetonide 0.5% 1 appl topical BID 15 grams 0RF L30.9 - Dermatitis, unspecified Coding Level of Care Code Est Pt Prev Care 18-39y([id number]) Diagnoses Annual physical exam Z00.00 Obesities, morbid E66.01 Iron deficiency anemia due to chronic blood loss D50.0 Iron deficiency anemia type: chronic blood loss Essential hypertension I10 Hypertension type: primary hypertension Gastroesophageal reflux disease without esophagitis K21.9 Esophagitis presence: without esophagitis Impaired glucose tolerance R73.02 Asthma J45.909 Menometrorrhagia N92.1 Dysphagia R13.10 Eczema L30.9
[2023-08-08 11:22] VITALS: BP 202/98; PULSE 110; O2SAT 95; BMI 49.6
== END 2023-08-08 12:22 | disposition home or self-care (01) ==
PROVIDERS: Visit Provider Internal Medicine
DX: Z00.00 Encounter for general adult medical examination without abnormal findings (principal); E66.01 Morbid (severe) obesity due to excess calories; Z68.42 Body mass index [BMI] 45.0-49.9, adult; D50.0 Iron deficiency anemia secondary to blood loss (chronic); Z23 Encounter for immunization; I10 Essential (primary) hypertension; K21.9 Gastro-esophageal reflux disease without esophagitis; R73.02 Impaired glucose tolerance (oral); J45.909 Unspecified asthma, uncomplicated; N92.1 Excessive and frequent menstruation with irregular cycle; R13.10 Dysphagia, unspecified; L30.9 Dermatitis, unspecified
CPT/HCPCS: 90471; 90686; 99395

== ENCOUNTER 2023-11-21 17:24 | Inpatient (IN) | payer OTHER, SELFPAY ==
--- NOTE | ~2023-11-21 | MR_ITS ---
MRI OF THE BRAIN WITHOUT IV CONTRAST INDICATION: Query acute CVA COMPARISON: CTA head and neck on 11/21/2023. TECHNIQUE: Multiplanar multisequence MR imaging of the brain was obtained without IV contrast. FINDINGS: No acute intracranial hemorrhage or infarct. No edema, midline shift or hydrocephalus. No acute extra-axial fluid collections. The osseous structures are unremarkable. There is crowding of the posterior fossa and 1.1 cm inferior descent of the cerebellar tonsils into the foramen magnum. Partially empty sella. The pineal gland and remaining midline structures are unremarkable. No orbital pathology. Mucosal thickening of the paranasal sinuses with polyposis versus mucus retention cysts in the left maxillary sinus. The mastoid air cells are clear. MR/MR head/brain wo con IMPRESSION: -No evidence of acute infarct as clinically questioned. -Partially empty sella and crowding of the posterior fossa with 1.1 cm inferior descent of the cerebellar tonsils into the foramen magnum. Findings are nonspecific however can be seen with idiopathic intracranial hypertension. Correlate clinically.
--- NOTE | ~2023-11-21 | CT_ITS ---
EXAMINATION: CT HEAD WITHOUT CONTRAST CT ANGIOGRAM HEAD CT ANGIOGRAM NECK CLINICAL INFORMATION: Reason for Exam transient slurred speech, hypertensive COMPARISON: None available. TECHNIQUE: Initial noncontrast dispatcher relay imaging of the head and neck was performed. Noncontrast head CT was also performed. Test bolus sequences followed by intravenous administration 85 mL of Omnipaque 350. Helical imaging was performed in the axial plane from the aortic arch to the skull vertex. Delayed postcontrast imaging of the head was also performed. The data was processed at the chemical engineering technologist's workstation for generation of MIP sequences. Angled MIPs and volume rendered reformatted images were also generated at an offline 3D workstation. Stenoses are assessed in accordance with Vallecillo et al. Quantification of Carotid Stenosis on CT Angiography. AJR 2006. 27(1):13-19. [address] CT examination was performed using dose optimization techniques as appropriate, variously including the following: *Automated exposure control *Adjustment of mA and/or kV according to patient size (this includes techniques or standardized protocols for targeted exams where dose is matched to indication/reason for exam; i.e. extremities or head) *Use of iterative reconstruction technique DLP: 2290.66 mGy-cm mGy-cm FINDINGS: CT HEAD: There is no evidence of acute intracranial hemorrhage. No mass-effect or ventricular shift is noted. No acute, territorial loss of phillip-white differentiation. The ventricles and sulci are appropriate in size and configuration for the patient's stated age. No abnormal intracranial enhancement. No depressed calvarial fracture. Scattered polypoid mucosal thickening in the paranasal sinuses. The mastoid air cells are well-aerated. CTA HEAD: Suboptimal evaluation secondary to intracranial venous contamination. Anterior circulation: Right internal carotid artery: No hemodynamically significant stenosis. Right middle cerebral artery: No hemodynamically significant stenosis. Right anterior cerebral artery: No hemodynamically significant stenosis. Left internal carotid artery: No hemodynamically significant stenosis. Left middle cerebral artery: No hemodynamically significant stenosis. Left anterior cerebral artery: No hemodynamically significant stenosis. Posterior circulation: Right vertebral artery: No hemodynamically significant stenosis. Left vertebral artery: No hemodynamically significant stenosis. Basilar artery: No hemodynamically significant stenosis. Right posterior cerebral artery: Partially patent. Distal evaluation is degraded by venous contamination and motion. Left posterior cerebral artery: No hemodynamically significant stenosis. No high flow vascular malformation or significant aneurysmal dilatation is visualized. The major dural venous sinuses are grossly within normal limits given arterial technique. CTA NECK: Aortic arch: Normal anatomy. Right common carotid artery: Suboptimal evaluated proximally secondary to beam hardening and contrast bolus timing. The visualized aspects are patent. Right proximal internal carotid artery: Atherosclerosis with less than 50% luminal narrowing. Right mid/distal internal carotid artery: No hemodynamically significant stenosis. Left common carotid artery: No hemodynamically significant stenosis. Left proximal internal carotid artery: Atherosclerosis without flow-limiting stenosis. Left mid/distal internal carotid artery: No hemodynamically significant stenosis. Right vertebral artery: The distal V1 segment and V1-V2 junction are suboptimally evaluated secondary to photon starvation from the shoulders. The visualized aspects are without flow-limiting stenosis. Left vertebral artery: The origin is obscured. No flow-limiting stenosis in the visualized cervical course. CT NECK: Enlargement of the main pulmonary artery may be seen in the setting of underlying pulmonary hypertension. CT/CT angio head neck IMPRESSION: CT HEAD: No acute intracranial hemorrhage or territorial loss of phillip-white differentiation. CTA NECK: No hemodynamically significant stenosis. CTA HEAD: No proximal vessel occlusion or high-grade stenosis.
[2023-11-21 17:56] VITALS: BP 204/94; PULSE 106; O2SAT 97; BMI 56.5
--- NOTE | 2023-11-21 18:31 | ECG_ITS ---
Test Reason : SLURRED SPEACH Blood Pressure : / mmHG Vent. Rate : 097 BPM Atrial Rate : 097 BPM P-R Int : 166 ms QRS Dur : 076 ms QT Int : 352 ms P-R-T Axes : -04 030 051 degrees QTc Int : 447 ms Normal sinus rhythm Anterior infarct , age undetermined Abnormal ECG No previous ECGs available Referred By: Judith Presley Electronically Signed By:ASHLEY KEARNS MD
[2023-11-21 18:57] LABS: MANUAL DIFF FLAG NO
[2023-11-21 18:58] LABS: Basophils Percent Auto 0.3 % (0-2); Eosinophils Percent Auto 0.3 % (0-4); Hematocrit 30.9 % (37.0-47.0); Hemoglobin 8.2 g/dl (12.0-16.0); Imm Gran Abs Auto 0.05 X10*3/uL (0.00-0.03); Imm Gran Pct Auto 0.4 % (0.0-0.4); Lymphocytes Absolute Auto 1.2 X10*3/uL (1.2-4.9); Lymphocytes Percent Auto 9.2 % (20-40); Mean Corpuscular HGB Conc 26.5 g/dl (31.0-35.0); Mean Corpuscular Hemoglobin 15.8 pg (27.0-33.0); Mean Platelet Volume 9.8 fL (9.4-12.3); Monocytes Absolute Auto 0.6 X10*3/uL (0.1-1.2); Monocytes Percent Auto 4.1 % (2-11); Neutrophils Absolute Auto 11.6 x10*3/uL (2.0-8.3); Neutrophils Percent Auto 85.7 % (45-73); Platelet Count 480 X10*3/uL (160-400); Red Blood Count 5.18 X10*6/uL (4.20-5.50); Red Cell Distribution Width 19.7 % (11.0-16.0); White Blood Count 13.6 X10*3/uL (4.8-10.8)
[2023-11-21 19:04] LABS: Appearance Urine Clear; Color Urine Yellow; Glucose Urine UA Negative (Negative); INTERNATIONAL NORM RATIO 1.1 (0.9-1.1); Leukocyte Esterase Urine Negative (Negative); Mean Corpuscular Volume 59.7 fL (80.0-98.0); Nitrite Urine Negative (Negative); PH 6.5 (5.0-9.0); Prothrombin Time 13.4 SEC (11.1-13.3); Specific Gravity - Urine <= 1.005 (1.005-1.025); UMIC TRIGGER UACC YES; Urine Blood Negative (Negative); Urine Ketones Negative (Negative); Urine Protein 100 (2+) mg/dL (Neg-Trace)
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
[2023-11-21 19:07] LABS: Bacteria Urine 1+ (None Seen); Hyaline Casts Urine 0-2 /LPF (0-2); WBC Urine 0-5 /HPF (0-5)
[2023-11-21 19:11] LABS: Alanine Aminotransferase 11 U/L (0-31); Albumin Level 4.2 g/dL (3.5-5.0); Alkaline Phosphatase 76 U/L (39-117); Anion Gap 16 (12-20); Aspartate Amino Transferase 12 U/L (5-31); Bilirubin Total 0.2 mg/dL (0.0-1.0); Blood Urea Nitrogen 14 mg/dL (9-16); Calcium 9.1 mg/dL (8.4-10.2); Carbon Dioxide 24 mmol/L (22-29); Chloride 104 mmol/L (96-108); Creatinine Clr Calc Pharmacy 149.8; Estimated Glomerular Filt Rate > 60; Glucose Random 141 mg/dL (60-115); Potassium 3.9 mmol/L (3.3-5.1); RBC Urine 0-2 /HPF (0-2); Sodium 140 mmol/L (135-145); Total Protein 8.1 g/dL (6.5-8.0)
[2023-11-21 19:18] LABS: Troponin-I High Sensitivity 9.2 ng/L (<3.5-17.0)
[2023-11-21 19:39] VITALS: BP 193/69; PULSE 111; RESP 18; TEMP 37.2
[2023-11-21] MEDS: Aspirin 81 MG TAB.CHEW 162 MG PO (20:04)
[2023-11-21] MEDS: Labetalol HCL 100 MG/20 ML VIAL IVPUSH (20:04)
[2023-11-21 20:36] LABS: HCG Quantitative < 2 mIU/mL
[2023-11-21] MEDS: iohexoL 350 MG/ML 100 ML INFUS..BTL 85 ML IV (21:21)
[2023-11-21 21:23] VITALS: BP 177/68; PULSE 110; RESP 16; TEMP 37.2; O2SAT 100
[2023-11-21] MEDS: Metoprolol Succinate ER 100 MG TAB.ER.24H PO (21:42)
[2023-11-21 22:00] VITALS: BP 178/71; PULSE 91; RESP 15; TEMP 36.5; O2SAT 98
--- NOTE | 2023-11-21 22:10 | MHC.EDTECH ---
Patient blood Pressure check ,RN Adela is aware of Pt high bp ,flu/covid swab collected and sent to lab .
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
[2023-11-21 22:27] VITALS: BP 185/88; PULSE 88; RESP 20; TEMP 36.6; O2SAT 98
[2023-11-21 22:31] LABS: COVID-19 Test Negative (Negative); IDNOW Serial# 55D5AD1C
[2023-11-21 22:56] LABS: IDNOW Serial# 16C4AD1C; Influenza A Invalid (Negative); Influenza B2 Invalid (Negative)
[2023-11-21 23:28] LABS: IDNOW Serial# 6674DD1D; Influenza A Negative (Negative); Influenza B2 Negative (Negative)
[2023-11-21 23:45] VITALS: BP 183/78; PULSE 89; RESP 16; TEMP 37.2; O2SAT 100
[2023-11-22] MEDS: Labetalol HCL 100 MG/20 ML VIAL 10 MG IVPUSH ×2 (00:07→04:36)
[2023-11-22] MEDS: Enoxaparin Sodium 40 MG/0.4 ML SYRINGE SUBCUT ×2 (00:12→10:39)
[2023-11-22] MEDS: 0.9 % Sodium Chloride Flush 3 ML SYRINGE IVFLUSH ×2 (00:13→10:38)
--- NOTE | 2023-11-22 00:29 | PC.NURSE ---
Patient is alert and oriented x4, Greek speaking. Patient is able to make her need known and uses call holland appropriately. Patient ambulates independently with a steady gait. Skin assessment completed, skin is intact. Patient denies any pain at present. 20 G IV line in L AC. BP elevated, patient is asymptomatic, medicated with Labetalol 10 mg IV push. sewing machine operator zipper in place, normal sinus rhythm, HR 89-95. Patient's family at bedside, call holland within patient's reach.
[2023-11-22 01:15] VITALS: BP 203/103; PULSE 91; RESP 15; TEMP 37
[2023-11-22 01:55] VITALS: BP 176/100; PULSE 94; RESP 20; TEMP 36.4; O2SAT 99
[2023-11-22 03:48] VITALS: BP 198/82; PULSE 93; RESP 18; TEMP 36.3; O2SAT 98
[2023-11-22 06:00] VITALS: BP 192/88
[2023-11-22 06:00] LABS: Basophils Absolute Auto 0.1 X10*3/uL (0.0-0.2); Basophils Percent Auto 0.4 % (0-2); SCAN SMEAR FLAG 1
[2023-11-22 06:02] LABS: Eosinophils Percent Auto 0.3 % (0-4); Hematocrit 30.4 % (37.0-47.0); Imm Gran Abs Auto 0.06 X10*3/uL (0.00-0.03); Imm Gran Pct Auto 0.5 % (0.0-0.4); Lymphocytes Absolute Auto 1.9 X10*3/uL (1.2-4.9); Lymphocytes Percent Auto 15.8 % (20-40); MANUAL DIFF FLAG SCAN; Mean Corpuscular HGB Conc 26.3 g/dl (31.0-35.0); Mean Corpuscular Hemoglobin 15.4 pg (27.0-33.0); Monocytes Absolute Auto 0.7 X10*3/uL (0.1-1.2); Monocytes Percent Auto 5.5 % (2-11); Neutrophils Absolute Auto 9.2 x10*3/uL (2.0-8.3); Neutrophils Percent Auto 77.5 % (45-73); Platelet Count 494 X10*3/uL (160-400); Red Blood Count 5.19 X10*6/uL (4.20-5.50); Red Cell Distribution Width 19.6 % (11.0-16.0); White Blood Count 11.9 X10*3/uL (4.8-10.8)
[2023-11-22 06:08] LABS: Mean Corpuscular Volume 58.6 fL (80.0-98.0); PLT ABN DIST 1
[2023-11-22 06:16] LABS: Anion Gap 14 (12-20); Blood Urea Nitrogen 9 mg/dL (9-16); Carbon Dioxide 24 mmol/L (22-29); Chloride 103 mmol/L (96-108); Creatinine Clr Calc Pharmacy 158.1; Estimated Glomerular Filt Rate > 60; Glucose Random 126 mg/dL (60-115); Potassium 3.7 mmol/L (3.3-5.1); Sodium 137 mmol/L (135-145)
[2023-11-22 06:24] LABS: SLIDE REVIEW VERIFIED
[2023-11-22 07:22] VITALS: BP 182/92; PULSE 82; RESP 20; TEMP 37; O2SAT 99
--- NOTE | 2023-11-22 08:08 | PHA.MEDREC ---
Pharmacy Consult ? Medication Reconciliation Pharmacy has completed the medication reconciliation. SPOKE TO PATIENT AND CONFIRMED MEDICATION LIST.
--- NOTE | 2023-11-22 08:41 | MHC.CM.PN ---
CM met with Patient, her /HCP, and her Father at bedside. Patient lives in an apartment with her , Step-Son, and [id number] and she required no services nor DME [employer]. Home/self care is the goal and CM has initiated and will follow for dc planning.PCP is Dr. Riccardo Skinner.
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
[2023-11-22] MEDS: Ascorbic Acid 500 MG TABLET PO (10:38)
[2023-11-22] MEDS: Metoprolol Succinate ER 100 MG TAB.ER.24H PO (10:38)
[2023-11-22] MEDS: Ferrous Sulfate 324 MG TABLET.DR PO (10:38)
[2023-11-22] MEDS: Cyanocobalamin (Vitamin B-12) 1,000 MCG TABLET 1000 MCG PO (10:38)
[2023-11-22 12:02] VITALS: BP 182/94; PULSE 98; RESP 20; TEMP 36.3; O2SAT 96
--- NOTE | 2023-11-22 13:27 | HE.PHANOTE ---
RE: MED REC In regards to progesterone, patient takes 1 capsule daily for 10 to 14 days after period. Patient's period started yesterday 11/21/23 and she said she won't take the progesterone until next sunday11/30/23.
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
--- NOTE | 2023-11-22 14:08 | MHC.CM.PN ---
Patient has been medically cleared for dc to home today, self care.
--- NOTE | 2023-11-22 14:53 | MHC.SL.SWA ---
Speech Pathologist Impression: Risk of Aspiration Due to: Neurological Condition Dysphasia Diet Status: Liquid Consistency and Strategies for Safe Swallow: Liquid Intake Recommendation: Thin Liquid Intake Strategies: Unrestricted Solid Food Consistency: Dietary Recommendations: Regular Additional Modifications to Solid Foods: Patient is able to independently eat. Should resume regular diet with preferred foods. Oral Medication Intake: Whole with Liquid Please contact the pharmacy regarding appropriate crushable or liquid drug formulations that are available whenever modified delivery is recommended. Compensatory Strategies and Precautions to be Taken for Safe Swallow: Sitting Upright (90 deg) Liquids from Cup Liquids from Straw Supervision While Eating and Drinking for Safe Swallow: None Needed Foods to Avoid: Swallowing Recommended Treatments: Recommendation for Speech: NA:Typical Evaluation Comment: Patient presents with all aspects of oral motor function and swallow function WFL. It is recommended patient continue on Regular Diet with Thin liquids, pills whole with liquid. Patient's language was also screened using subtests of the translated version of the BDAE Short form. Patient Identified 14/15 items on the short from of the BNT/Slovenian, with ease and accuracy. Error item was unfamiliar term (tripod), but patient described its function well. Patient accurately followed one, two and three step directions given in [place]ian and readily identified items on a receptive language task. Patient evidenced no indication of slurred speech, producing clear, articulate speech with good prosody and no hesitations. Speech and Language skills present as at baseline and within normal limits. No further speech/language services needed as inpatient or at next level of care. MD/RD notified of recommendations by secure text, RN in person. TILE PRESSER will D/C speech. Please recontact if any additional concerns arise. Frequency/Duration: Date Range for Service Req: Timeline to reassess: Concession Attendant Clinican/Clinical Fellow: No Supervisory Statement: I have reviewed and agree with the student/clinical fellow's documentation: N/A Speech Language Pathologist: Starr Francois M.A., CCC-TILE PRESSER
[2023-11-22] MEDS: amLODIPine Besylate 10 MG TABLET PO (15:12)
== END 2023-11-22 15:58 | disposition home or self-care (01) | DRG 199 ==
LOC: HO.ED 20:11 → HO.EDOVER 22:27 → HO.IMC 11-22 00:22
PROVIDERS: Admitting Provider Student in an Organized Health Care Education/Training Program; Emergency Provider Student in an Organized Health Care Education/Training Program; PCP Internal Medicine; Visit Provider Family Medicine
DX: I16.1 Hypertensive emergency (principal); I67.4 Hypertensive encephalopathy; G93.2 Benign intracranial hypertension; Z68.43 Body mass index [BMI] 50.0-59.9, adult; E66.01 Morbid (severe) obesity due to excess calories; K21.9 Gastro-esophageal reflux disease without esophagitis; D50.9 Iron deficiency anemia, unspecified; I10 Essential (primary) hypertension; Z20.822 Contact with and (suspected) exposure to COVID-19; Z79.899 Other long term (current) drug therapy
CPT/HCPCS: 36415; 70496; 70498; 70551; 80048; 80053; 81001; 81003; 84484; 84702; 85025; 85610; 87502; 87635; 92610; 93005; 99285; J1650; J1920; Q9967

== ENCOUNTER → 2023-11-21 18:31 | Outpatient (BNV) | payer OTHER, SELFPAY | PROVIDERS: Admitting Provider Student in an Organized Health Care Education/Training Program; Emergency Provider Student in an Organized Health Care Education/Training Program; PCP Internal Medicine; Visit Provider Internal Medicine Cardiovascular Disease | DX: R94.31 Abnormal electrocardiogram [ECG] [EKG] (principal) | CPT/HCPCS: 93010 ==

== ENCOUNTER → 2023-11-21 22:20 | Outpatient (BNV) | payer OTHER, SELFPAY | PROVIDERS: Admitting Provider Student in an Organized Health Care Education/Training Program; Emergency Provider Student in an Organized Health Care Education/Training Program; PCP Internal Medicine; Visit Provider Student in an Organized Health Care Education/Training Program | DX: I16.1 Hypertensive emergency (principal); R47.81 Slurred speech; E66.01 Morbid (severe) obesity due to excess calories; Z68.43 Body mass index [BMI] 50.0-59.9, adult; I67.4 Hypertensive encephalopathy; E23.6 Other disorders of pituitary gland | CPT/HCPCS: 99222; 99239 ==

== ENCOUNTER → 2023-11-21 22:20 | Outpatient (BNV) | payer OTHER, SELFPAY | PROVIDERS: Admitting Provider Student in an Organized Health Care Education/Training Program; Emergency Provider Student in an Organized Health Care Education/Training Program; PCP Internal Medicine; Visit Provider Psychiatry & Neurology Neurology | DX: R47.81 Slurred speech (principal) | CPT/HCPCS: 99222 ==

== ENCOUNTER 2023-12-05 14:21 | Outpatient (AMB) | payer OTHER, SELFPAY ==
--- NOTE | 2023-12-05 14:29 | A.OFFPC_ITS ---
Vital Signs 12/05/23 14:30 12/05/23 14:39 Height 5 ft 3 in Weight 274 lb 4 oz BMI 48.6 BP 182/70 H 196/64 H Blood Pressure Location Lt brachial Rt brachial Position Sitting Sitting Respiration 18 Pulse 97 Pulse Source Pulse Oximeter Pulse Oximetry (%) 99 Oxygen Delivery Method Room Air Intake Visit Reasons: [facility] [place] 11/22- high bp/unable to speak Intake Note: Dr. Skinner's patient is here for hospital discharge follow up. Patient was discharged from [facility] [place] on 11/22/23 for Brain TIA, Malignant hypertension. Network Control Operator Required: Yes Network Control Operator Language: Italian Accompanied by: Spouse Allergies bee pollen [BEE STINGS] Allergy (Mild, Verified 12/05/23 15:10) ARM SWELLS AND GET RED crab [CRAB] Allergy (Unknown, Verified 12/05/23 15:10) FACE SWELLING, ITCHY enalapril Allergy (Unknown, Verified 12/05/23 15:10) Unknown Medication List - Last Reconciled 12/05/23 by Sergio Mendez PA-C albuterol sulfate 90 mcg/actuation (ProAir HFA) 2 puffs PO QID PRN amlodipine 10 mg See Protocol PO DAILY 30 days ascorbate calcium (vitamin C) 500 mg PO DAILY aspirin 81 mg PO DAILY atorvastatin 40 mg PO BEDTIME cyanocobalamin (vitamin B-12) 1,000 mcg PO DAILY diphenhydramine HCl (Benadryl Allergy) 25 mg PO BEDTIME PRN 30 days famotidine (Pepcid) 20 mg PO DAILY PRN ferrous sulfate (Feosol) 325 mg PO DAILY 90 days hydrochlorothiazide 12.5 mg PO DAILY 30 days metoprolol succinate ER 100 mg PO DAILY 90 days progesterone micronized (Prometrium) 200 mg PO BEDTIME triamcinolone acetonide 0.5% 1 appl topical BID PRN Tobacco use date assessed: 12/05/23 Dental Screening Dental Screen Date: 12/05/23 Did you have a dental visit in the last 12 months?: Yes Did you have a dental problem in the last 6 months where you did not have access to dental care?: No Was dental information given to patient?: Patient has dentist HPI [facility] [place] 11/22- high bp/unable to speak HPI Details Patient is a 33-year-old female here today for hospital discharge follow-up. Patient has a past medical history significant for obesity, hypertension, GERD and B12 deficiency. She was seen at [facility] for acute altered mental status, slurred speech and facial droop reported. Patient was found to have elevated blood pressure. CTA and MRI of brain without any acut CVA though was found to an empty sella with posterior fossa crowding. Neurology was consulted who felt her symptoms were related to hypertensive encephalopathy.. She was to follow-up with neurology as outpatient for the pituitary finding. She was to continue amlodipine and metoprolol. Was started on aspirin and statin therapy for vascular risk protection [facility] Medical History Dysphagia Anxiety ASCUS with positive high risk HPV DANY I (cervical intraepithelial neoplasia I) Obesities, morbid Allergic rhinitis High blood sugar Asthma Menometrorrhagia GERD (gastroesophageal reflux disease) Iron deficiency anemia Hypertension Vitamin B12 deficiency Surgical History No pertinent past surgical history Family History Father No problems noted. Mother Breast cancer Hypertension Maternal Grandfather Hypertension FH: prostate cancer Paternal Grandfather Hypertension Stroke Myocardial infarct Maternal Aunt Hypertension Diabetes Ovarian cancer Paternal Grandmother Diabetes Maternal Grandmother Myocardial infarct Maternal Uncle Bipolar 1 disorder Social History Household Members: Spouse Household Members Other:: mother in law and step son Housing: Apartment Do you presently have visiting nurse or other home services: No Alcohol intake: never Patient Tobacco Use Status: Never used Tobacco e-Cigarette/Vaping Use: Never Used Second Hand Smoke Exposure: No service: No Current occupational status: employed Current occupational exposures/hazards: No Cognitive needs: No Hearing needs: No Vision needs: No Female Reproductive History Menstrual Age of Menarche: 12 Questionnaire PHQ-9 Over the last 2 weeks, how often have you been bothered by any of the following problems? 1. Little interest or pleasure in doing things: not at all 2. Feeling down, depressed, or hopeless: not at all 3. Trouble falling or staying asleep, or sleeping too much: not at all 4. Feeling tired or having little energy: not at all 5. Poor appetite or overeating: not at all 6. Feeling bad about yourself - or that you are a failure or have let yourself or your family down: not at all 7. Trouble concentrating on things, such as reading the newspaper or watching television: not at all 8. Moving or speaking so slowly that other people could have noticed. Or the opposite - being so fidgety or restless that you have been moving around a lot more than usual: not at all 9. Thoughts that you would be better off or of hurting yourself in some way: not at all Total score: 0 Depression Screening Interpretation: Negative Depression Screening Done: Yes 63629 - PHQ-9 Billing: Yes Source: Developed by Drs. López Veras, Hilton Romero and colleagues, with an educational tiffanie from [employer]. Thrive Questionnaire Date Thrive assessed: 11/22/23 AUDIT C Alcohol Use Questionnaire (AUDIT-C) 1. How often do you have a drink containing alcohol?: Never 3. How often do you have six or more drinks on one occasion?: Never Total Score: 0 LEATHA-7 AMB Questionnaire LEATHA-7 Date LEATHA - 7 assessed: 12/05/23 Feeling nervous, anxious, or on edge: 1 = Several days Not being able to stop or control worryin = Not at all Worrying too much about different things: 2 = More than half the days Trouble relaxin = Not at all Being so restless that it is hard to sit still: 0 = Not at all Becoming easily annoyed or irritable: 0 = Not at all Feeling afraid as if something awful might happen: 2 = More than half the days Total LEATHA-7 score (0-4 normal; 5-9 mild; 10-14 moderate; 15-21 severe): 5 Source: Developed by Drs. López Veras, Hilton Romero and colleagues, with an educational tiffanie from [employer]. LEATHA-7 Assessment Billing LEATHA-7 Assessment Tool: LEATHA-7 Assessment 85421 Review of Systems Const Denies headache(s) Eyes Denies loss of vision ENT Denies vertigo, Denies dizziness, Denies headache(s) and Denies sore throat Card Denies chest pain, Denies leg edema and Denies lightheadedness Resp Denies cough, Denies hemoptysis and Denies wheezing GI Denies abdominal pain, Denies melena, Denies constipation, Denies diarrhea and Denies vomiting Denies urinary frequency, Denies dysuria and Denies urinary urgency Musc Denies arthralgias, Denies joint swelling, Denies numbness and Denies tingling Neuro Denies Abnormal speech present, Denies behavioral changes, Denies vertigo, Denies dizziness, Denies headache(s), Denies loss of vision, Denies memory loss, Denies numbness and Denies tingling Psych Denies anxiety, Denies behavioral changes, Denies depression, Denies memory loss and Denies panic attacks Harvey/Lymph Denies easy bleeding and Denies easy bruising Aller/Immun Denies wheezing Physical exam (Primary Care) Vital Signs: Last Vital Signs Pulse 97 12/05/23 14:30 Resp 18 12/05/23 14:30 BP 196/64 H 12/05/23 14:39 Pulse Ox 99 12/05/23 14:30 Oxygen Delivery Method Room Air 12/05/23 14:30 BMI result Body Mass Index 48.6 Tobacco/Smoking Status: Tobacco use Status Tobacco use date assessed 08/08/23 12/05/23 14:30 Patient Tobacco Use Status Never used Tobacco 12/05/23 14:30 Tobacco use type 08/08/23 12:23 e-Cigarette/Vaping Use Never Used 12/05/23 14:30 PHQ-9: PHQ-9 Score PHQ-9: Total score 0 12/05/23 14:42 Depression Screening Interpretation: Negative Thrive Assessment: Date of Thrive Assessment Date Thrive assessed 11/22/23 12/05/23 14:30 Const General: healthy appearing, no acute distress, alert and awake Nutritional Appearance: well nourished Orientation/consciousness: oriented to person, oriented to place and oriented to time HENMT Ears: TM's normal bilaterally General nose exam: Normal nasal mucous membranes and turbinates present Eyes Conjunctivae: conjunctivae normal Sclerae: sclerae normal Pupils: Equal, round and reactive pupils present Neck Neck: Yes no lymphadenopathy and Yes no JVD Thyroid: Thyroid normal Carotids: no bruits Resp Effort & Inspection: normal respiratory effort and not tachypneic Auscultation: no crackles, no rales, no rhonchi and no wheezes Cardio Rate: regular rate Rhythm: regular rhythm Heart sounds: no murmurs and normal S1 and S2 GI Palpation (GI): Soft to palpation, nontender, no hepatomegaly and no splenomegaly Auscultation: normal bowel sounds Skin General skin exam: no rashes or lesions noted and dry skin Neuro General: oriented to person, oriented to place and oriented to time Cranial nerves: Yes Equal, round and reactive pupils present Speech: No Abnormal speech present Gait exam (Neuro): Normal gait present Motor exam (neuro): no tremor noted Extrem Right upper extremity: full ROM Left upper extremity: full ROM Right lower extremity: full ROM; no edema Left lower extremity: full ROM; no edema Psych Mental Status: mental status grossly normal Speech and movement: Normal speech and movement present Affect: normal affect Attitude: cooperative Thought process: Normal thought process present Assessment and Plan Assessment & Plan (1) Uncontrolled hypertension: Code(s): I10 - Essential (primary) hypertension Plan: patient's blood pressure remains elevated today in office. Will add on hydrochlorothiazide to her blood pressure med regime. High suspicion here for obstructive sleep apnea. If does not have obstructive sleep apnea will consider other alternative such as renal artery stenosis. There is concerned here for TIA thus was started aspirin and atorvastatin Will refer to Cardiology for the uncontrolled hypertension (2) Empty sella: Code(s): E23.6 - Other disorders of pituitary gland Plan: As per HPI was found to have empty sella on brain MRI. Will refer to Neurology for further evaluation (3) MANUEL (obstructive sleep apnea): Code(s): G47.33 - Obstructive sleep apnea (adult) (pediatric) Plan: High suspicion for obstructive sleep apnea here. Would like to do in lab sleep study. (4) Thyromegaly: Code(s): E01.0 - Iodine-deficiency related diffuse (endemic) goiter Plan: Has large neck girth, some fullness in the anterior aspect of the neck. Does complain dysphagia at times. 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 RT PSG in-lab sleep study Today G47.33 - Obstructive sleep apnea (adult) (pediatric) Referrals Cardiology Referral I10 - Essential (primary) hypertension Neurology Referral E23.6 - Other disorders of pituitary gland Medications: New hydrochlorothiazide 12.5 mg PO DAILY 30 days 30 tabs 3RF I10 - Essential (primary) hypertension Changed From atorvastatin 40 mg PO BEDTIME 30 tabs 0RF I10 - Essential (primary) hypertension To atorvastatin 40 mg PO BEDTIME 90 tabs 1RF 90 days I10 - Essential (primary) hypertension From amlodipine 10 mg See Protocol PO DAILY 30 tabs 0RF I10 - Essential (primary) hypertension To amlodipine 10 mg See Protocol PO DAILY 30 days 30 tabs 1RF I10 - Essential (primary) hypertension Refilled metoprolol succinate ER 100 mg PO DAILY 90 days 90 tabs 1RF I10 - Essential (primary) hypertension aspirin 81 mg PO DAILY 30 tabs 0RF E01.0 - Iodine-deficiency related diffuse (endemic) goiter Coding Level of Care Code Est Pt Level 4 (84816) Diagnoses Uncontrolled hypertension I10 Empty sella E23.6 MANUEL (obstructive sleep apnea) G47.33 Thyromegaly E01.0 Additional Codes LEATHA-7 Assessment Billing - LEATHA-7 Assessment Tool: LEATHA-7 Assessment 76432 ([id number])
[2023-12-05 14:30] VITALS: BP 182/70; PULSE 97; RESP 18; O2SAT 99; BMI 48.6
[2023-12-05 14:39] VITALS: BP 196/64
== END 2023-12-05 15:11 | disposition home or self-care (01) ==
PROVIDERS: PCP Internal Medicine; Visit Provider Physician Assistant
DX: I10 Essential (primary) hypertension (principal); E23.6 Other disorders of pituitary gland; G47.33 Obstructive sleep apnea (adult) (pediatric); E01.0 Iodine-deficiency related diffuse (endemic) goiter
CPT/HCPCS: 99214

== ENCOUNTER 2023-12-18 14:47 | Outpatient (AMB) | payer OTHER, SELFPAY ==
--- NOTE | 2023-12-18 15:07 | AM.OFFVISNUR ---
Intake Intake Visit Reasons: PPD Plant Allergies bee pollen [BEE STINGS] Allergy (Mild, Verified 12/05/23 15:10) ARM SWELLS AND GET RED crab [CRAB] Allergy (Unknown, Verified 12/05/23 15:10) FACE SWELLING, ITCHY enalapril Allergy (Unknown, Verified 12/05/23 15:10) Unknown Office Meds tuberculin PPD 5 tub. unit/0.1 mL intradermal injection solution Performing Provider: Riccardo Skinner MD [facility] Administered by: Noris Feldman RN on 12/18/23 15:07 Dose Route Admin Location Dispensed Lot Number Expiration Date NDC Dishwashing Machine Operator 0.1 mL intradermal left forarm 0.1 mL [id number] 02/18/27 84646-826-14 [employer] Coding Assessment & Plan Assessment & Plan Orders: Orders AMB PPD Planted Today Z11.1 - Encounter for screening for respiratory tuberculosis
== END 2023-12-18 15:08 | disposition home or self-care (01) ==
PROVIDERS: PCP Internal Medicine; Visit Provider Internal Medicine
DX: Z11.1 Encounter for screening for respiratory tuberculosis (principal)
CPT/HCPCS: 86580

== ENCOUNTER 2023-12-24 14:49 | Outpatient (REF) | payer OTHER, SELFPAY ==
--- NOTE | ~2023-12-24 | US_ITS ---
EXAMINATION: US THYROID CLINICAL INFORMATION: Iodine-deficiency related diffuse (endemic) goiter. COMPARISON: Thyroid ultrasound 08/12/2018. CT angiogram head and neck 11/21/2023. TECHNIQUE: Linear transducer grayscale and color Doppler examination with attention to the region of the thyroid. Technically difficult study secondary to body habitus. FINDINGS: SIZE: Measurements of the thyroid lobes and nodules are given in sagittal, anteroposterior and transverse dimensions respectively. Right Thyroid Lobe: 4.3 x 1.9 x 2.2 cm, volume 9.2 mL. Previously 4.4 x 1.7 x 1.6 cm, volume 6.7 mL. Parenchyma: The gland echotexture is homogeneous. Thyroid vascularity is normal. Left Thyroid Lobe: 4.8 x 1.6 x 1.6 cm, volume 6.5 mL. Previously 3.3 x 1.1 x 1.5 cm, volume 3.0 mL. Parenchyma: The gland echotexture is homogeneous. Thyroid vascularity is normal. Isthmus: 0.4 cm in maximum AP dimension. Previously 0.3 cm. No focal thyroid nodule is seen. NODES: No lymphadenopathy is seen in the tissue surrounding the thyroid gland. US/US thyroid IMPRESSION: No significant abnormality is seen. The right lobe of the thyroid is larger than the left, similar to 08/12/2018. No nodules are detected. ACR TI-RADS RECOMMENDATION REFERENCE: Ultrasound-guided fine-needle aspiration, follow up ultrasound, no further followup. * TR1 (0 point) and TR2 (2 points): No FNA or followup. * TR3 (3 points): FNA if more than or equal to 2.5 cm in maximum dimension, follow up ultrasound in 1, 3 and 5 years if 1.5 to 2.4 cm in maximum dimension. * TR4 (4-6 points): FNA if more than or equal to 1.5 cm in maximum dimension, followup ultrasound in 1, 2, 3 and 5 years if 1 to 1.4 cm in maximum dimension. * TR5 (more than or equal to 7 points): FNA if more than or equal to 1 cm in maximum dimension, followup ultrasound every year for 5 years if 0.5 to 0.9 cm in maximum dimension. * TR3, TR4 or TR5 nodules that are below the size threshold for followup receive no followup.
== END 2023-12-24 14:50 | disposition home or self-care (01) ==
LOC: HO.US 14:49
PROVIDERS: PCP Internal Medicine; Visit Provider Physician Assistant
DX: E01.0 Iodine-deficiency related diffuse (endemic) goiter (principal)
CPT/HCPCS: 76536

== ENCOUNTER 2025-01-02 15:47 | Emergency (ER) | payer OTHER, SELFPAY ==
[2025-01-02] VITALS (13 sets, daily range): BP systolic 166–234; BP diastolic 73–112; PULSE 86–110; RESP 18–26; TEMP 36.8–37.1; O2SAT 96–99; BMI 56.4
--- NOTE | ~2025-01-02 | XR_ITS ---
EXAMINATION: XR CHEST CLINICAL INFORMATION: shortness of breath COMPARISON: None available. TECHNIQUE: 2 views of the chest were obtained. FINDINGS: Moderate cardiomegaly. Mild vascular congestion in the hilar regions. Normal mediastinal contours. And there is subtle patchy opacity in the right lower lung. This is best appreciated on the PA projection. Lungs otherwise clear. There is no pneumothorax or pleural effusion. There is no focal osseous or soft tissue abnormality. XR/XR chest 2V IMPRESSION: 1. Subtle patchy opacity right lower lung, likely pneumonia in the appropriate clinical setting. 2. Moderate cardiomegaly. 3. Vascular congestion in the hilar regions. Electronically signed by: Wayne Castro MD 01/02/2025 04:24 PM EDT
--- NOTE | 2025-01-02 15:55 | ED_ITS ---
HPI - General Adult General Chief complaint: General Medical Stated complaint: SOB Time Seen by Provider: 01/02/25 16:15 Related Data Home Medications ?Medication ?Instructions ?Recorded ?Confirmed famotidine 20 mg tablet (Pepcid) 20 mg PO DAILY PRN Acid Reflux 08/04/20 12/05/23 triamcinolone acetonide 0.5 % 1 appl topical BID PRN Allergic 11/22/23 12/05/23 topical cream Reaction Previous Rx's ?Medication ?Instructions ?Recorded diphenhydramine HCl 25 mg tablet 25 mg PO BEDTIME PRN allergic 08/04/20 (Benadryl Allergy) symptoms 30 days #30 tabs albuterol sulfate 90 mcg/actuation 2 puff PO QID PRN for wheezing 11/30/21 aerosol inhaler (ProAir HFA) #8.5 ea aspirin 81 mg chewable tablet 81 mg PO DAILY #30 tabs 01/16/24 ferrous sulfate 325 mg (65 mg 325 mg PO DAILY 90 days #90 tabs 05/11/24 iron) tablet (Feosol) progesterone micronized 200 mg 200 mg PO BEDTIME 10 days #30 caps 05/27/24 capsule (Prometrium) ascorbate calcium (vitamin C) 500 500 mg PO DAILY #180 tabs 06/04/24 mg tablet cyanocobalamin (vitamin B-12) 1,000 mcg PO DAILY #90 caps 06/04/24 1,000 mcg capsule hydrochlorothiazide 12.5 mg tablet 12.5 mg PO DAILY 30 days #30 tabs 08/02/24 amlodipine 10 mg tablet 10 mg PO DAILY 90 days #90 tabs 12/11/24 atorvastatin 40 mg tablet 40 mg PO BEDTIME 90 days #90 tabs 12/11/24 metoprolol succinate 100 mg 100 mg PO DAILY 90 days #90 tabs 12/11/24 tablet,extended release 24 hr albuterol sulfate 2.5 mg/0.5 mL 5 mg inhalation Q4H PRN shortness 01/02/25 solution for nebulization of breath or wheezing #30 ea albuterol sulfate 90 mcg/actuation 2 puff inhalation Q4-6H PRN 01/02/25 aerosol inhaler shortness of breath or wheezing #6.7 grams amoxicillin 875 mg-potassium 1 tab PO BID 7 days #14 tabs 01/02/25 clavulanate 125 mg tablet azithromycin 250 mg tablet 250 mg PO DAILY 4 days #4 tabs 01/02/25 prednisone 20 mg tablet 40 mg (2 x 20 mg) PO DAILY 5 days 01/02/25 #10 tabs Allergies Allergy/AdvReac Type Severity Reaction Status Date / Time bee pollen [BEE STINGS] Allergy Mild ARM SWELLS Verified 01/02/25 16:03 AND GET RED crab [CRAB] Allergy Unknown FACE Verified 01/02/25 16:03 SWELLING, ITCHY enalapril Allergy Unknown Unknown Verified 01/02/25 16:03 [facility] Past Medical History Medical History Dysphagia Anxiety ASCUS with positive high risk HPV DANY I (cervical intraepithelial neoplasia I) Obesities, morbid Allergic rhinitis High blood sugar Asthma Menometrorrhagia GERD (gastroesophageal reflux disease) Iron deficiency anemia Hypertension Vitamin B12 deficiency Surgical History No pertinent past surgical history Family History Family History Father No problems noted. Mother Breast cancer Hypertension Maternal Grandfather Hypertension FH: prostate cancer Paternal Grandfather Hypertension Stroke Myocardial infarct Maternal Aunt Hypertension Diabetes Ovarian cancer Paternal Grandmother Diabetes Maternal Grandmother Myocardial infarct Maternal Uncle Bipolar 1 disorder Social History Social History Household Members: Spouse Household Members Other:: mother in law and step son Housing: Apartment Do you presently have visiting nurse or other home services: No Alcohol intake: unknown Patient Tobacco Use Status: Never used Tobacco Smoked in Last 30 Days: No e-Cigarette/Vaping Use: Never Used Second Hand Smoke Exposure: No Use of substances other than those prescribed or required for medical reasons: No Advance Directives: No Advance Directives Information Provided: No Do you have a plan to hurt others: No Plan Patient : No service: No Current occupational status: employed Current occupational exposures/hazards: No Cognitive needs: No Hearing needs: No Vision needs: No Physical Exam ED Vital Signs: Vital Signs - 24 hr 01/02/25 15:57 01/02/25 16:32 01/02/25 16:48 Temperature 98.3 F 98.8 F Pulse Rate 110 H 103 H 86 Respiratory Rate 18 24 H 26 H Blood Pressure 208/85 H Pulse Oximetry 97 98 Oxygen Delivery Method Room Air Room Air 01/02/25 17:42 01/02/25 18:23 01/02/25 18:42 Temperature Pulse Rate 102 H 102 H 103 H Respiratory Rate 20 25 H 18 Blood Pressure 191/82 H 166/77 H Pulse Oximetry 96 98 Oxygen Delivery Method Room Air Room Air 01/02/25 19:01 01/02/25 19:16 01/02/25 20:24 Temperature Pulse Rate 98 98 101 H Respiratory Rate 18 Blood Pressure 194/74 H 168/73 H 205/88 H Pulse Oximetry 98 Oxygen Delivery Method Room Air 01/02/25 20:44 01/02/25 21:42 01/02/25 21:48 Temperature Pulse Rate 94 97 Respiratory Rate 20 Blood Pressure 234/112 H 199/92 H 185/79 H Pulse Oximetry 99 Oxygen Delivery Method Room Air BMI result Body Mass Index 56.4 Course Course Course Narrative: This is a rapid medical exam performed by Kira Rodriguez NP: Additional HPI, ROS, PE not included below will be deferred to primary provider. Patient is a 34-year-old [place]ese speaking female with history of thyromegaly, MANUEL, obesity, HTN, asthma, GERD, MITESH presenting with complaint of shortness of breath, feels like asthma exacerbation x 1 week, worse today. Using inhaler with little relief. Forgot BP med this am, so just took it [employer] about 30 mins ago. Hypertensive in triage, 271/127. Plan: viral panel, CXR -1706--no leukocytosis. H/H stable. XR chest 2V IMPRESSION: 1. Subtle patchy opacity right lower lung, likely pneumonia in the appropriate clinical setting. 2. Moderate cardiomegaly. 3. Vascular congestion in the hilar regions. > lactic/blood cultures and empiric IV antibiotics ordered -troponin 29.9 will obtain 3 hour repeat. BNP 132. -1815--lactic acid elevated to 2.2 > likely from albuterol use >> on re- evaluation patient is still with diminished lung sounds and expiratory wheeze. Will give additional DuoNeb -RSV positive. -1920--on re-evaluation patient reports symptomatic improvement. Lungs CTA. Plan for discharge home, pending repeat troponin/lactic acid -repeat lactic acid slightly improved to 2.1. Still low suspicion for severe sepsis. Repeat troponin without significant rise, mi unlikely. Plan for discharge home at this time -patient's BP very elevated upon attempted discharge. Will give additional dose of p.o. metoprolol. Discussed with patient needed close follow-up with PCP and close BP monitoring. Denies headache/chest pain -2148--BP improved to 185/79. Safe for discharge home at this time Results discussed with patient including worrisome signs and symptoms and strict return precautions, and when to return to the emergency department. They verbalized understanding and feel safe for discharge at this time. Medications Administered Discontinued Medications Generic Name Dose Route Start Last Admin Trade Name Freq PRN Reason Stop Dose Admin Ceftriaxone Sodium 1 gm 01/02/25 17:02 01/02/25 17:25 Ceftriaxone Sodium 1 Gm Vial IVPUSH 01/02/25 17:03 1 gm ONCE ONE Administration Albuterol Sulfate 5 mg/ 0 mg 01/02/25 16:47 01/02/25 16:48 Albuterol/Ipratropium 3 ml INHALE 01/02/25 16:48 1 each ONCE ONE Administration Albuterol Sulfate 2.5 mg/ 0 mg 01/02/25 18:18 01/02/25 18:23 Albuterol/Ipratropium 3 ml INHALE 01/02/25 18:19 1 dose ONCE ONE Administration Azithromycin 500 mg/ Sodium 250 mls @ 125 mls/hr 01/02/25 17:02 01/02/25 19:30 Chloride IV 01/02/25 19:01 Infused ONCE ONE Infusion Sodium Chloride 1,000 mls @ 999 mls/hr 01/02/25 17:15 01/02/25 19:00 Ns IV 01/02/25 18:15 Infused .Q1H1M ADDI Infusion Methylprednisolone Sodium Succinate 60 mg 01/02/25 16:25 01/02/25 17:23 Methylprednisolone Sod Succ 125 Mg/2 Ml Vial IVPUSH 01/02/25 16:26 60 mg ONCE ONE Administration Metoprolol Tartrate 50 mg 01/02/25 20:27 01/02/25 20:44 Metoprolol Tartrate 50 Mg Tablet PO 01/02/25 20:28 50 mg ONCE ONE Administration Protocol Medical Decision Making Lab Data 01/02/25 16:40 01/02/25 16:40 Labs: Lab Results 01/02/25 01/02/25 01/02/25 Range/Units 16:40 17:18 19:25 WBC 8.9 (4.8-10.8) X10*3/uL RBC 5.36 (4.20-5.50) X10*6/uL Hgb 11.2 L D (12.0-16.0) g/dl Hct 38.9 D (37.0-47.0) % MCV 72.6 L (80.0-98.0) fL MCH 20.9 L (27.0-33.0) pg MCHC 28.8 L (31.0-35.0) g/dl RDW 17.9 H (11.0-16.0) % Plt Count 355 D (160-400) X10*3/uL MPV 11.3 (9.4-12.3) fL Immature Gran % (Auto) 0.8 H (0.0-0.4) % Neut % (Auto) 70.1 (45-73) % Lymph % (Auto) 13.9 L (20-40) % Harnett % (Auto) 9.7 (2-11) % Eos % (Auto) 4.9 H (0-4) % Baso % (Auto) 0.6 (0-2) % Lymph # (Auto) 1.2 (1.2-4.9) X10*3/uL [place]ett # (Auto) 0.9 (0.1-1.2) X10*3/uL Eos # (Auto) 0.4 (0.0-0.4) X10*3/uL Baso # (Auto) 0.1 (0.0-0.2) X10*3/uL Abs Immat Gran (auto) 0.07 H (0.00-0.03) X10*3/uL Absolute Neuts (auto) 6.2 (2.0-8.3) x10*3/uL Absolute Nucleated RBC 0.000 (0.0-0.012) X10*3/uL Nucleated RBC % (auto) 0.0 (0.0-0.2) /100WBC Sodium 137 (135-145) mmol/L Potassium 3.6 (3.3-5.1) mmol/L Chloride 102 (96-108) mmol/L Carbon Dioxide 23 (22-29) mmol/L Anion Gap 16 (12-20) BUN 10 (9-16) mg/dL Creatinine 0.72 (0.5-1.4) mg/dL Estim Creat Clear Calc 150.9 Estimated GFR > 60 Random Glucose 187 H (60-115) mg/dL Lactic Acid 2.2 H* 2.1 H* (0.5-2.0) mmol/L Calcium 9.2 (8.4-10.2) mg/dL Total Bilirubin 0.2 (0.0-1.0) mg/dL Direct Bilirubin < 0.2 (0.0-0.5) mg/dL AST 24 (5-31) U/L ALT 26 (0-31) U/L Alkaline Phosphatase 111 (39-117) U/L Troponin I High Sens 29.9 H D 32.4 H (<3.5-17.0) ng/L B-Natriuretic Peptide 132 H (<100) pg/mL Total Protein 8.7 H (6.5-8.0) g/dL Albumin 4.1 (3.5-5.0) g/dL Influenza Type A (PCR) NEGATIVE (Negative) Influenza Type B (PCR) NEGATIVE (Negative) RSV RNA Qual (PCR) POSITIVE A (Negative) SARS-CoV-2 RNA (RT-PCR) NEGATIVE (Negative) Critical Care Time Critical Care Time Critical Care Time: Yes Total Critical Care Time: 40 Attestation: I have personally provided critical care time exclusive of time spent on separately billable procedures. Time includes review of lab data, radiology results, discussion with consultants, and monitoring for potential decompensation. Intervention performed as documented. Discharge Plan Discharge Clinical Impression: Respiratory syncytial virus (RSV), Pneumonia Patient Disposition: Home, Self-Care Instructions: Respiratory Syncytial Virus (ED), Pneumonia (ED) Additional Instructions: You have pneumonia and RSV. Augmentin and azithromycin or antibiotics please take as prescribed In addition take prednisone Use your inhalers and neb machine at home as discussed Please have close follow up with her doctor If symptoms persist or worsen if constant worsening chest pain, shortness of breath, fever return to the ED Prescriptions: New azithromycin 250 mg tablet 250 mg PO DAILY 4 Days Qty: 4 0RF Rx Instructions: start on day 2 of therapy prednisone 20 mg tablet 40 mg PO DAILY 5 Days Qty: 10 0RF albuterol sulfate 90 mcg/actuation HFA aerosol inhaler 2 puff inhalation Q4-6H PRN (Reason: shortness of breath or wheezing) Qty: 6.7 0RF amoxicillin-pot clavulanate 875-125 mg tablet 1 tab PO BID 7 Days Qty: 14 0RF albuterol sulfate 2.5 mg/0.5 mL solution for nebulization 5 mg inhalation Q4H PRN (Reason: shortness of breath or wheezing) Qty: 30 0RF No Action albuterol sulfate [ProAir HFA] 90 mcg/actuation HFA aerosol inhaler 2 puff PO QID PRN (Reason: for wheezing) Qty: 8.5 0RF aspirin 81 mg tablet,chewable 81 mg PO DAILY Qty: 30 0RF ferrous sulfate [Feosol] 325 mg (65 mg iron) tablet 325 mg PO DAILY 90 Days Qty: 90 3RF progesterone micronized [Prometrium] 200 mg capsule 200 mg PO BEDTIME 10 Days Qty: 30 0RF Rx Instructions: Take the pill 1 tablet a day cyclically every month from day 15-24 day 1 being the 1st day of next menstrual cycle cyanocobalamin (vitamin B-12) 1,000 mcg capsule 1,000 mcg PO DAILY Qty: 90 3RF ascorbate calcium (vitamin C) 500 mg tablet 500 mg PO DAILY Qty: 180 7RF hydrochlorothiazide 12.5 mg tablet 12.5 mg PO DAILY 30 Days Qty: 30 1RF atorvastatin 40 mg tablet 40 mg PO BEDTIME 90 Days Qty: 90 1RF metoprolol succinate 100 mg tablet extended release 24 hr 100 mg PO DAILY 90 Days Qty: 90 1RF amlodipine 10 mg tablet 10 mg PO DAILY 90 Days Qty: 90 1RF Protocol: Hold for SBP< HOLD for SBP < : 90 triamcinolone acetonide 0.5 % cream 1 appl topical BID PRN (Reason: Allergic Reaction) famotidine [Pepcid] 20 mg tablet 20 mg PO DAILY PRN (Reason: Acid Reflux) diphenhydramine HCl [Benadryl Allergy] 25 mg tablet 25 mg PO BEDTIME PRN (Reason: allergic symptoms) 30 Days Qty: 30 3RF Referrals: Po,Riccardo Ridley MD [Primary Care Provider] - 5 days Print Language: Taiwanese
--- NOTE | 2025-01-02 16:00 | ECG_ITS ---
Test Reason : dyspnea Blood Pressure : */* mmHG Vent. Rate : 103 BPM Atrial Rate : 103 BPM P-R Int : 162 ms QRS Dur : 84 ms QT Int : 356 ms P-R-T Axes : 28 32 130 degrees QTcB Int : [address] & T wave abnormality, consider lateral ischemia Abnormal ECG When compared with ECG of 21-Nov-2023 18:58, lateral changes more prominent Referred By: La Rodriguez Electronically Signed By: APOLONIA HURST
--- NOTE | 2025-01-02 16:16 | ED.GENADULT ---
HPI - General Adult General Chief complaint: General Medical Stated complaint: SOB Time Seen by Provider: 01/02/25 16:15 Source: patient, EMS, RN notes reviewed and old records reviewed Mode of arrival: EMS History of Present Illness ED Provider: Jocelin Marinelli PA-C HPI narrative: 34-year-old female with a past medical history anxiety, asthma, HTN, anemia, GERD, obesity, presenting to the ED c/o worsening SOB x1 week with associated productive cough. + multiple sick contacts. Has been using inhalers and nebs at home without relief. Denies fever, chills, chest pain, pedal edema, recent travel, recent steroid use Related Data Home Medications ?Medication ?Instructions ?Recorded ?Confirmed famotidine 20 mg tablet (Pepcid) 20 mg PO DAILY PRN Acid Reflux 08/04/20 12/05/23 triamcinolone acetonide 0.5 % 1 appl topical BID PRN Allergic 11/22/23 12/05/23 topical cream Reaction Previous Rx's ?Medication ?Instructions ?Recorded diphenhydramine HCl 25 mg tablet 25 mg PO BEDTIME PRN allergic 08/04/20 (Benadryl Allergy) symptoms 30 days #30 tabs albuterol sulfate 90 mcg/actuation 2 puff PO QID PRN for wheezing 11/30/21 aerosol inhaler (ProAir HFA) #8.5 ea aspirin 81 mg chewable tablet 81 mg PO DAILY #30 tabs 01/16/24 ferrous sulfate 325 mg (65 mg 325 mg PO DAILY 90 days #90 tabs 05/11/24 iron) tablet (Feosol) progesterone micronized 200 mg 200 mg PO BEDTIME 10 days #30 caps 05/27/24 capsule (Prometrium) ascorbate calcium (vitamin C) 500 500 mg PO DAILY #180 tabs 06/04/24 mg tablet cyanocobalamin (vitamin B-12) 1,000 mcg PO DAILY #90 caps 06/04/24 1,000 mcg capsule hydrochlorothiazide 12.5 mg tablet 12.5 mg PO DAILY 30 days #30 tabs 08/02/24 amlodipine 10 mg tablet 10 mg PO DAILY 90 days #90 tabs 12/11/24 atorvastatin 40 mg tablet 40 mg PO BEDTIME 90 days #90 tabs 12/11/24 metoprolol succinate 100 mg 100 mg PO DAILY 90 days #90 tabs 12/11/24 tablet,extended release 24 hr albuterol sulfate 2.5 mg/0.5 mL 5 mg inhalation Q4H PRN shortness 01/02/25 solution for nebulization of breath or wheezing #30 ea albuterol sulfate 90 mcg/actuation 2 puff inhalation Q4-6H PRN 01/02/25 aerosol inhaler shortness of breath or wheezing #6.7 grams amoxicillin 875 mg-potassium 1 tab PO BID 7 days #14 tabs 01/02/25 clavulanate 125 mg tablet azithromycin 250 mg tablet 250 mg PO DAILY 4 days #4 tabs 01/02/25 prednisone 20 mg tablet 40 mg (2 x 20 mg) PO DAILY 5 days 01/02/25 #10 tabs Allergies Allergy/AdvReac Type Severity Reaction Status Date / Time bee pollen [BEE STINGS] Allergy Mild ARM SWELLS Verified 01/02/25 16:03 AND GET RED crab [CRAB] Allergy Unknown FACE Verified 01/02/25 16:03 SWELLING, ITCHY enalapril Allergy Unknown Unknown Verified 01/02/25 16:03 Review of Systems Review of Systems: Yes all other systems are reviewed and are negative Constitutional: Constitutional: Reports as per [facility] Past Medical History Attestation statement: The following information was validated with the patient. Source: old records reviewed Medical History Dysphagia Anxiety ASCUS with positive high risk HPV DANY I (cervical intraepithelial neoplasia I) Obesities, morbid Allergic rhinitis High blood sugar Asthma Menometrorrhagia GERD (gastroesophageal reflux disease) Iron deficiency anemia Hypertension Vitamin B12 deficiency Surgical History No pertinent past surgical history Family History Family History Father No problems noted. Mother Breast cancer Hypertension Maternal Grandfather Hypertension FH: prostate cancer Paternal Grandfather Hypertension Stroke Myocardial infarct Maternal Aunt Hypertension Diabetes Ovarian cancer Paternal Grandmother Diabetes Maternal Grandmother Myocardial infarct Maternal Uncle Bipolar 1 disorder Social History Social History Household Members: Spouse Household Members Other:: mother in law and step son Housing: Apartment Do you presently have visiting nurse or other home services: No Alcohol intake: unknown Patient Tobacco Use Status: Never used Tobacco Smoked in Last 30 Days: No e-Cigarette/Vaping Use: Never Used Second Hand Smoke Exposure: No Use of substances other than those prescribed or required for medical reasons: No Advance Directives: No Advance Directives Information Provided: No Do you have a plan to hurt others: No Plan Patient : No service: No Current occupational status: employed Current occupational exposures/hazards: No Cognitive needs: No Hearing needs: No Vision needs: No Physical Exam ED Vital Signs: Vital Signs - 24 hr 01/02/25 15:57 01/02/25 16:32 01/02/25 16:48 Temperature 98.3 F 98.8 F Pulse Rate 110 H 103 H 86 Respiratory Rate 18 24 H 26 H Blood Pressure 208/85 H Pulse Oximetry 97 98 Oxygen Delivery Method Room Air Room Air 01/02/25 17:42 01/02/25 18:23 01/02/25 18:42 Temperature Pulse Rate 102 H 102 H 103 H Respiratory Rate 20 25 H 18 Blood Pressure 191/82 H 166/77 H Pulse Oximetry 96 98 Oxygen Delivery Method Room Air Room Air 01/02/25 19:01 01/02/25 19:16 01/02/25 20:24 Temperature Pulse Rate 98 98 101 H Respiratory Rate 18 Blood Pressure 194/74 H 168/73 H 205/88 H Pulse Oximetry 98 Oxygen Delivery Method Room Air 01/02/25 20:44 01/02/25 21:42 01/02/25 21:48 Temperature Pulse Rate 94 97 Respiratory Rate 20 Blood Pressure 234/112 H 199/92 H 185/79 H Pulse Oximetry 99 Oxygen Delivery Method Room Air BMI result Body Mass Index 56.4 Const General: cooperative, healthy appearing and no acute distress Orientation/consciousness: patient oriented x3 Limitations: no limitations HENMT Head: Yes normal to inspection and Yes atraumatic Ears: hearing grossly normal bilaterally General nose exam: Normal external nose present Face and sinus: Yes normal facial exam Eyes General: appearance normal, both eyes and all related structures EOM: EOMs intact bilaterally Neck Neck: Yes normal visual inspection and Yes no meningeal signs Resp Effort & Inspection: normal respiratory effort and no respiratory distress Auscultation: wheezes expiratory wheezes and inspiratory wheezes and diminished lung sounds diffuse Cardio Rate: regular rate and tachycardic Heart sounds: S1 normal heart sound present and S2 normal heart sound present GI Inspection: Yes normal to inspection Palpation (GI): Soft to palpation, nontender, no guarding and not rigid General: Yes no CVA tenderness Back/Spine/Pelvis Back: no CVA tenderness Skin Rashes: no rashes Wounds: no wounds Neuro General: patient oriented x3, tone normal and no meningeal signs Cranial nerves: Yes CN's II-XII intact bilaterally Gait exam (Neuro): Normal gait present Extrem Other: 1+ bilateral LE edema. No calf tenderness General: Yes normal to inspection Course Course Course Narrative: -1706--no leukocytosis. H/H stable. XR chest 2V IMPRESSION: 1. Subtle patchy opacity right lower lung, likely pneumonia in the appropriate clinical setting. 2. Moderate cardiomegaly. 3. Vascular congestion in the hilar regions. > lactic/blood cultures and empiric IV antibiotics ordered -troponin 29.9 will obtain 3 hour repeat. BNP 132. -1815--lactic acid elevated to 2.2 > likely from albuterol use >> on re-evaluation patient is still with diminished lung sounds and expiratory wheeze. Will give additional DuoNeb -RSV positive. -1920--on re-evaluation patient reports symptomatic improvement. Lungs CTA. Plan for discharge home, pending repeat troponin/lactic acid -repeat lactic acid slightly improved to 2.1. Still low suspicion for severe sepsis. Repeat troponin without significant rise, mi unlikely. Plan for discharge home at this time -patient's BP very elevated upon attempted discharge. Will give additional dose of p.o. metoprolol. Discussed with patient needed close follow-up with PCP and close BP monitoring. Denies headache/chest pain -2148--BP improved to 185/79. Safe for discharge home at this time Results discussed with patient including worrisome signs and symptoms and strict return precautions, and when to return to the emergency department. They verbalized understanding and feel safe for discharge at this time. Medications Administered Discontinued Medications Generic Name Dose Route Start Last Admin Trade Name Freq PRN Reason Stop Dose Admin Ceftriaxone Sodium 1 gm 01/02/25 17:02 01/02/25 17:25 Ceftriaxone Sodium 1 Gm Vial IVPUSH 01/02/25 17:03 1 gm ONCE ONE Administration Albuterol Sulfate 5 mg/ 0 mg 01/02/25 16:47 01/02/25 16:48 Albuterol/Ipratropium 3 ml INHALE 01/02/25 16:48 1 each ONCE ONE Administration Albuterol Sulfate 2.5 mg/ 0 mg 01/02/25 18:18 01/02/25 18:23 Albuterol/Ipratropium 3 ml INHALE 01/02/25 18:19 1 dose ONCE ONE Administration Azithromycin 500 mg/ Sodium 250 mls @ 125 mls/hr 01/02/25 17:02 01/02/25 19:30 Chloride IV 01/02/25 19:01 Infused ONCE ONE Infusion Sodium Chloride 1,000 mls @ 999 mls/hr 01/02/25 17:15 01/02/25 19:00 Ns IV 01/02/25 18:15 Infused .Q1H1M ADDI Infusion Methylprednisolone Sodium Succinate 60 mg 01/02/25 16:25 01/02/25 17:23 Methylprednisolone Sod Succ 125 Mg/2 Ml Vial IVPUSH 01/02/25 16:26 60 mg ONCE ONE Administration Metoprolol Tartrate 50 mg 01/02/25 20:27 01/02/25 20:44 Metoprolol Tartrate 50 Mg Tablet PO 01/02/25 20:28 50 mg ONCE ONE Administration Protocol Medical Decision Making Medical Decision Making MDM Narrative: 34-year-old female with a past medical history anxiety, asthma, HTN, anemia, GERD, obesity, presenting to the ED c/o worsening SOB x1 week with associated productive cough. + multiple sick contacts. On exam hypertensive (admits took her antihypertensive shortly prior to ED arrival), tachycardic, inspiratory and expiratory wheeze appreciated with diminished lung sounds throughout. 1+ bilateral LE edema. Concern for asthma exacerbation vs viral illness vs pneumonia/bronchitis. Lower suspicion for PE/DVT at this time. Lower suspicion for hypertensive urgency/emergency. Plan: EKG, labs, CXR, viral testing, ED bronch protocol, IV Solu-Medrol, re-evaluate Please refer to course for remaining clinical decision making, interpretation of labs/imaging results, and discussions with consultants and/or family members. Differential Diagnosis Differential Diagnoses: The differential diagnosis associated with the presentation includes As above Admission/Observation Consideration of admission/observation: Escalation of care including admission/observation considered Lab Data [facility] Lab Attestation statement: I reviewed the patient's lab results. 01/02/25 16:40 01/02/25 16:40 Labs: Lab Results 01/02/25 01/02/25 01/02/25 Range/Units 16:40 17:18 19:25 WBC 8.9 (4.8-10.8) X10*3/uL RBC 5.36 (4.20-5.50) X10*6/uL Hgb 11.2 L D (12.0-16.0) g/dl Hct 38.9 D (37.0-47.0) % MCV 72.6 L (80.0-98.0) fL MCH 20.9 L (27.0-33.0) pg MCHC 28.8 L (31.0-35.0) g/dl RDW 17.9 H (11.0-16.0) % Plt Count 355 D (160-400) X10*3/uL MPV 11.3 (9.4-12.3) fL Immature Gran % (Auto) 0.8 H (0.0-0.4) % Neut % (Auto) 70.1 (45-73) % Lymph % (Auto) 13.9 L (20-40) % [place] % (Auto) 9.7 (2-11) % Eos % (Auto) 4.9 H (0-4) % Baso % (Auto) 0.6 (0-2) % Lymph # (Auto) 1.2 (1.2-4.9) X10*3/uL [place] # (Auto) 0.9 (0.1-1.2) X10*3/uL Eos # (Auto) 0.4 (0.0-0.4) X10*3/uL Baso # (Auto) 0.1 (0.0-0.2) X10*3/uL Abs Immat Gran (auto) 0.07 H (0.00-0.03) X10*3/uL Absolute Neuts (auto) 6.2 (2.0-8.3) x10*3/uL Absolute Nucleated RBC 0.000 (0.0-0.012) X10*3/uL Nucleated RBC % (auto) 0.0 (0.0-0.2) /100WBC Sodium 137 (135-145) mmol/L Potassium 3.6 (3.3-5.1) mmol/L Chloride 102 (96-108) mmol/L Carbon Dioxide 23 (22-29) mmol/L Anion Gap 16 (12-20) BUN 10 (9-16) mg/dL Creatinine 0.72 (0.5-1.4) mg/dL Estim Creat Clear Calc 150.9 Estimated GFR > 60 Random Glucose 187 H (60-115) mg/dL Lactic Acid 2.2 H* 2.1 H* (0.5-2.0) mmol/L Calcium 9.2 (8.4-10.2) mg/dL Total Bilirubin 0.2 (0.0-1.0) mg/dL Direct Bilirubin < 0.2 (0.0-0.5) mg/dL AST 24 (5-31) U/L ALT 26 (0-31) U/L Alkaline Phosphatase 111 (39-117) U/L Troponin I High Sens 29.9 H D 32.4 H (<3.5-17.0) ng/L B-Natriuretic Peptide 132 H (<100) pg/mL Total Protein 8.7 H (6.5-8.0) g/dL Albumin 4.1 (3.5-5.0) g/dL Influenza Type A (PCR) NEGATIVE (Negative) Influenza Type B (PCR) NEGATIVE (Negative) RSV RNA Qual (PCR) POSITIVE A (Negative) SARS-CoV-2 RNA (RT-PCR) NEGATIVE (Negative) Independent Interpretation I performed an independent interpretation of an: EKG and Plain X-Ray Radiology Impression Discussion of test interpretation with radiology: I have reviewed the radiologist's reading. External Record Review External record reviewed: Inpatient record, Office record, Outpatient record, Prior outpatient labs, Prior outpatient radiology, Primary care record and Outside ED record Tests considered The following testing was considered but not selected: As above Prescription Management I considered prescription management with: Pain Medication and Antibiotic Chronic Conditions Patient?s care impacted by: Other Social Determinants Patient?s care significantly limited by Social Determinants of Health including: Other Social Determinant of Health Discharge Plan Discharge Clinical Impression: Respiratory syncytial virus (RSV), Pneumonia, Uncontrolled hypertension Patient Disposition: Home, Self-Care Instructions: Respiratory Syncytial Virus (ED), Pneumonia (ED) Additional Instructions: You have pneumonia and RSV. Augmentin and azithromycin or antibiotics please take as prescribed In addition take prednisone YOU NEED TO HAVE CLOSE FOLLOW UP WITH HER DOCTOR PERTAINING TO YOUR BLOOD PRESSURE. TAKE YOUR BLOOD PRESSURE MEDICATIONS PRESCRIBED, DO NOT MISS ANY DOSES Use your inhalers and neb machine at home as discussed Please have close follow up with her doctor If symptoms persist or worsen if constant worsening chest pain, shortness of breath, fever return to the ED Prescriptions: New azithromycin 250 mg tablet 250 mg PO DAILY 4 Days Qty: 4 0RF Rx Instructions: start on day 2 of therapy prednisone 20 mg tablet 40 mg PO DAILY 5 Days Qty: 10 0RF albuterol sulfate 90 mcg/actuation HFA aerosol inhaler 2 puff inhalation Q4-6H PRN (Reason: shortness of breath or wheezing) Qty: 6.7 0RF amoxicillin-pot clavulanate 875-125 mg tablet 1 tab PO BID 7 Days Qty: 14 0RF albuterol sulfate 2.5 mg/0.5 mL solution for nebulization 5 mg inhalation Q4H PRN (Reason: shortness of breath or wheezing) Qty: 30 0RF No Action albuterol sulfate [ProAir HFA] 90 mcg/actuation HFA aerosol inhaler 2 puff PO QID PRN (Reason: for wheezing) Qty: 8.5 0RF aspirin 81 mg tablet,chewable 81 mg PO DAILY Qty: 30 0RF ferrous sulfate [Feosol] 325 mg (65 mg iron) tablet 325 mg PO DAILY 90 Days Qty: 90 3RF progesterone micronized [Prometrium] 200 mg capsule 200 mg PO BEDTIME 10 Days Qty: 30 0RF Rx Instructions: Take the pill 1 tablet a day cyclically every month from day 15-24 day 1 being the 1st day of next menstrual cycle cyanocobalamin (vitamin B-12) 1,000 mcg capsule 1,000 mcg PO DAILY Qty: 90 3RF ascorbate calcium (vitamin C) 500 mg tablet 500 mg PO DAILY Qty: 180 7RF hydrochlorothiazide 12.5 mg tablet 12.5 mg PO DAILY 30 Days Qty: 30 1RF atorvastatin 40 mg tablet 40 mg PO BEDTIME 90 Days Qty: 90 1RF metoprolol succinate 100 mg tablet extended release 24 hr 100 mg PO DAILY 90 Days Qty: 90 1RF amlodipine 10 mg tablet 10 mg PO DAILY 90 Days Qty: 90 1RF Protocol: Hold for SBP< HOLD for SBP < : 90 triamcinolone acetonide 0.5 % cream 1 appl topical BID PRN (Reason: Allergic Reaction) famotidine [Pepcid] 20 mg tablet 20 mg PO DAILY PRN (Reason: Acid Reflux) diphenhydramine HCl [Benadryl Allergy] 25 mg tablet 25 mg PO BEDTIME PRN (Reason: allergic symptoms) 30 Days Qty: 30 3RF Referrals: Po,Riccardo Ridley MD [Primary Care Provider] - 5 days Print Language: Bol[place]ian
[2025-01-02 16:47] LABS: MANUAL DIFF FLAG NO
[2025-01-02] MEDS: Albuterol Sulfate 5 MG, Albuterol/Iprat 2.5/0.5MG 3 ML 3 ML INHALE (16:48)
[2025-01-02 16:50] LABS: Basophils Absolute Auto 0.1 X10*3/uL (0.0-0.2); Basophils Percent Auto 0.6 % (0-2); Eosinophils Absolute Auto 0.4 X10*3/uL (0.0-0.4); Eosinophils Percent Auto 4.9 % (0-4); Hematocrit 38.9 % (37.0-47.0); Hemoglobin 11.2 g/dl (12.0-16.0); Imm Gran Abs Auto 0.07 X10*3/uL (0.00-0.03); Imm Gran Pct Auto 0.8 % (0.0-0.4); Lymphocytes Absolute Auto 1.2 X10*3/uL (1.2-4.9); Lymphocytes Percent Auto 13.9 % (20-40); Mean Corpuscular HGB Conc 28.8 g/dl (31.0-35.0); Mean Corpuscular Hemoglobin 20.9 pg (27.0-33.0); Mean Corpuscular Volume 72.6 fL (80.0-98.0); Mean Platelet Volume 11.3 fL (9.4-12.3); Monocytes Absolute Auto 0.9 X10*3/uL (0.1-1.2); Monocytes Percent Auto 9.7 % (2-11); Neutrophils Absolute Auto 6.2 x10*3/uL (2.0-8.3); Neutrophils Percent Auto 70.1 % (45-73); Platelet Count 355 X10*3/uL (160-400); Red Blood Count 5.36 X10*6/uL (4.20-5.50); Red Cell Distribution Width 17.9 % (11.0-16.0); White Blood Count 8.9 X10*3/uL (4.8-10.8)
[2025-01-02 17:04] LABS: Alanine Aminotransferase 26 U/L (0-31); Albumin Level 4.1 g/dL (3.5-5.0); Alkaline Phosphatase 111 U/L (39-117); Anion Gap 16 (12-20); Aspartate Amino Transferase 24 U/L (5-31); Bilirubin Direct < 0.2 mg/dL (0.0-0.5); Bilirubin Total 0.2 mg/dL (0.0-1.0); Blood Urea Nitrogen 10 mg/dL (9-16); Calcium 9.2 mg/dL (8.4-10.2); Carbon Dioxide 23 mmol/L (22-29); Chloride 102 mmol/L (96-108); Creatinine Clr Calc Pharmacy 150.9; Estimated Glomerular Filt Rate > 60; Glucose Random 187 mg/dL (60-115); Potassium 3.6 mmol/L (3.3-5.1); Sodium 137 mmol/L (135-145); Total Protein 8.7 g/dL (6.5-8.0)
[2025-01-02 17:09] LABS: B Type Natriuretic Peptide 132 pg/mL (<100); Troponin-I High Sensitivity 29.9 ng/L (<3.5-17.0)
[2025-01-02] MEDS: 0.9 % Sodium Chloride 1,000 ML 999 ML IV (17:23)
[2025-01-02] MEDS: methylPREDNISolone Sod Succ 125 MG/2 ML VIAL 60 MG IVPUSH (17:23)
[2025-01-02] MEDS: cefTRIAXone sodium 1 GM VIAL IVPUSH (17:25)
[2025-01-02] MEDS: Azithromycin 500 MG in 0.9 % Sodium Chloride 250 ML 125 MG IV (17:26)
[2025-01-02 17:33] LABS: Influenza A PCR NEGATIVE (Negative); Influenza B PCR NEGATIVE (Negative); Resp Syncy Virus RNA Qual PCR POSITIVE (Negative); SARS COV2 PCR INHOUSE NEGATIVE (Negative)
--- NOTE | 2025-01-02 17:44 | PC.NURSE ---
Patient awake and alert. skin pwd, resp even and non labored. speaking in full, clear sentences. denies SOB at this time. reports cough and congestion, denies fevers/chills. blood cultures obtained and sent to lab and antibiotics started per order. patient aware of plan of care
[2025-01-02 17:53] LABS: Lactic Acid 2.2 mmol/L (0.5-2.0)
[2025-01-02] MEDS: Albuterol Sulfate 2.5 MG, Albuterol/Iprat 2.5/0.5MG 3 ML 3 ML INHALE (18:23)
[2025-01-02 19:26] LABS: Reflex Lactate? Lactic Acid Added
[2025-01-02 19:51] LABS: Lactic Acid 2.1 mmol/L (0.5-2.0)
[2025-01-02 19:52] LABS: Troponin-I High Sensitivity 32.4 ng/L (<3.5-17.0)
--- NOTE | 2025-01-02 20:29 | PC.NURSE ---
Patient awake and skin pwd, resp even and non labored, speaking in full clear sentences. NSR via tele. patient BP increased into 200's, PA made aware
[2025-01-02] MEDS: Metoprolol Tartrate 50 MG TABLET PO (20:44)
[2025-01-02 21:28] LABS: Reflex Lactate? Lactic Acid Added
== END 2025-01-02 22:16 | disposition home or self-care (01) ==
PROVIDERS: Physician Assistant; Registered Nurse Emergency; Emergency Provider Emergency Medicine; PCP Internal Medicine
DX: J12.1 Respiratory syncytial virus pneumonia (principal); R05.9 Cough, unspecified; I10 Essential (primary) hypertension; R06.02 Shortness of breath; R00.0 Tachycardia, unspecified; R11.0 Nausea; R60.0 Localized edema; Z79.899 Other long term (current) drug therapy; Z03.818 Encounter for observation for suspected exposure to other biological agents ruled out
CPT/HCPCS: 0241U; 36415; 71046; 80048; 80076; 83605; 83880; 84484; 85025; 87040; 93005; 94640; 96361; 96374; 96375; 99284; 99285; J0456; J0696; J2919

== ENCOUNTER → 2025-01-02 15:58 | Outpatient (BNV) | payer OTHER, SELFPAY | PROVIDERS: Emergency Provider Emergency Medicine; PCP Internal Medicine; Visit Provider Radiology Diagnostic Radiology | DX: I51.7 Cardiomegaly (principal); R91.8 Other nonspecific abnormal finding of lung field | CPT/HCPCS: 71046 ==

== ENCOUNTER → 2025-01-02 16:00 | Outpatient (BNV) | payer OTHER, SELFPAY | PROVIDERS: Emergency Provider Emergency Medicine; PCP Internal Medicine; Visit Provider Internal Medicine | DX: R00.0 Tachycardia, unspecified (principal) | CPT/HCPCS: 93010 ==

== ENCOUNTER 2025-06-01 17:27 | Emergency (ER) | payer OTHER, SELFPAY ==
--- NOTE | ~2025-06-01 | XR_ITS ---
CLINICAL HISTORY: chest pain 2 view chest x-ray Comparison: CR/ND/SR - XR CHEST 2 VIEWS - 01/02/25 16:16 EDT Findings: Mild opacity of the right lung base. There is enlargement of the cardiopericardial silhouette. No acute fracture. IMPRESSION: Mild atelectasis/infiltrate of the right lung base. Cardiomegaly. This document has been electronically signed by: Coty Infante MD on 06/01/2025 19:01:59
--- NOTE | 2025-06-01 17:29 | ECG_ITS ---
Test Reason : CP Blood Pressure : */* mmHG Vent. Rate : 84 BPM Atrial Rate : 84 BPM P-R Int : 128 ms QRS Dur : 86 ms QT Int : 388 ms P-R-T Axes : * 15 33 degrees QTcB Int : 458 ms Normal sinus rhythm Normal ECG When compared with ECG of 02-Jan-2025 16:26, T wave inversion no longer evident in Lateral leads Referred By: Generic ED Physician Electronically Signed By: Kemar Vitale
[2025-06-01 18:21] VITALS: BP 241/111; PULSE 85; RESP 18; TEMP 36.4; O2SAT 99; BMI 36.8
--- NOTE | 2025-06-01 18:21 | ED_ITS ---
HPI - General Adult General Chief complaint: Chest Pain Stated complaint: CP Time Seen by Provider: 06/01/25 23:42 History of Present Illness ED Provider: Zaki Ramon MD HPI narrative: 34-year-old female with self-reported white coat hypertension with atypical central chest discomfort many hours ago today some radiation to left arm. [place] perhaps this was asthma but did not have wheeze cough fever. No injury to the chest wall denies hemoptysis or history of DVT or PE. No early ACS sudden cardiac in the family described Related Data Home Medications ?Medication ?Instructions ?Recorded ?Confirmed famotidine 20 mg tablet (Pepcid) 20 mg PO DAILY PRN Ac id Reflux 08/04/20 12/05/23 triamcinolone acetonide 0.5 % 1 appl topical BID PRN A llergic 11/22/23 12/05/23 topical cream Reaction Previous Rx's ?Medication ?Instructions ?Recorded diphenhydramine HCl 25 mg tablet 25 mg PO BEDTIME PRN allergic 08/04/20 (Benadryl Allergy) symptoms 30 days #30 tabs albuterol sulfate 90 mcg/actuation 2 puff PO QID PRN f or wheezing 11/30/21 aerosol inhaler (ProAir HFA) #8.5 ea aspirin 81 mg chewable tablet 81 mg PO DAILY #30 tabs 01/16/24 ferrous sulfate 325 mg (65 mg 325 mg PO DAILY 90 days #90 tabs 05/11/24 iron) tablet (Feosol) progesterone micronized 200 mg 200 mg PO BEDTIME 10 da ys #30 caps 05/27/24 capsule (Prometrium) ascorbate calcium (vitamin C) 500 500 mg PO DAILY #180 tabs 06/04/24 mg tablet cyanocobalamin (vitamin B-12) 1,000 mcg PO DAILY #90 c aps 06/04/24 1,000 mcg capsule amlodipine 10 mg tablet 10 mg PO DAILY 90 days #90 t abs 12/11/24 atorvastatin 40 mg tablet 40 mg PO BEDTIME 90 days #90 tabs 12/11/24 metoprolol succinate 100 mg 100 mg PO DAILY 90 days #9 0 tabs 12/11/24 tablet,extended release 24 hr albuterol sulfate 2.5 mg/0.5 mL 5 mg inhalation Q4H MN N shortness 01/02/25 solution for nebulization of breath or wheezing #30 ea albuterol sulfate 90 mcg/actuation 2 puff inhalation Q 4-6H PRN 01/02/25 aerosol inhaler shortness of breath or wheez ing #6.7 grams amoxicillin 875 mg-potassium 1 tab PO BID 7 days #14 t abs 01/02/25 clavulanate 125 mg tablet azithromycin 250 mg tablet 250 mg PO DAILY 4 days #4 t abs 01/02/25 prednisone 20 mg tablet 40 mg (2 x 20 mg) PO DAILY 5 days 01/02/25 #10 tabs hydrochlorothiazide 12.5 mg tablet 12.5 mg PO DAILY 30 days #30 tabs 04/26/25 Allergies Allergy/AdvReac Type Severity Reaction Status Date / Time bee pollen (BEE STINGS) Allergy Mild ARM SWELLS Verified 06/01/25 18:24 AND GET RED crab (CRAB) Allergy Unknown FACE Verified 06/01/25 18:24 SWELLING, ITCHY enalapril Allergy Unknown Unknown Verified 06/01/25 18:24 [facility] Past Medical History Medical History Dysphagia Anxiety ASCUS with positive high risk HPV DANY I (cervical intraepithelial neoplasia I) Obesities, morbid Allergic rhinitis High blood sugar Asthma Menometrorrhagia GERD (gastroesophageal reflux disease) Iron deficiency anemia Hypertension Vitamin B12 deficiency Surgical History No pertinent past surgical history Family History Family History Father No problems noted. Mother Breast cancer Hypertension Maternal Grandfather Hypertension FH: prostate cancer Paternal Grandfather Hypertension Stroke Myocardial infarct Maternal Aunt Hypertension Diabetes Ovarian cancer Paternal Grandmother Diabetes Maternal Grandmother Myocardial infarct Maternal Uncle Bipolar 1 disorder Social History Social History Household Members: Spouse Household Members Other:: mother in law and step son Housing: Apartment Do you presently have visiting nurse or other home services: No Alcohol intake: unknown Patient Tobacco Use Status: Never used Tobacco Smoked in Last 30 Days: No e-Cigarette/Vaping Use: Never Used Second Hand Smoke Exposure: No Use of substances other than those prescribed or required for medical reasons: No Advance Directives: No Advance Directives Information Provided: Yes service: No Current occupational status: employed Current occupational exposures/hazards: No Cognitive needs: No Hearing needs: No Vision needs: No Physical Exam ED Exam Exam: EXAM: Gen: Alert, awake, well appearing, well hydrated. Overweight Head: Atraumatic Eyes: Anicteric, Normal conjunctiva. ENT: Moist mucosa, no pallor. ? Neck: Supple. Skin: ?No observable rash or bruising on exposed or examined skin Respiratory: Breathing comfortably, No distress.Clear to auscultation bilaterally, symmetric chest expansion, No wheeze, rales, ronchi. Cardiovascular: Regular rate and rhythm. No murmurs or rub. Well perfused periphery, warm extremities. No edema. ? Abdominal: No focal tenderness. Soft, no objective distension. No palpable masses or obvious organomegaly. ?No guarding, no rebound tenderness or other peritoneal findings. : No flank tenderness. Neuro: Alert. Gross movement of all extremities intact. ? Psych: Calm. Cooperative. MSK: No grossly visible deformity. 2+ pulses bilateral upper extremities Vital signs: See flowsheet Vital Signs: Vital Signs - 24 hr 06/01/25 18:21 06/01/25 22:25 06/02/25 00:02 Temperature 97.5 F 98.2 F Pulse Rate 85 92 88 Respiratory Rate 18 16 18 Blood Pressure 241/111 H 157/73 H 174/77 H Pulse Oximetry 99 99 99 Oxygen Delivery Method Room Air Room Air Room Air 06/02/25 00:29 Temperature 98.2 F Pulse Rate 88 Respiratory Rate 18 Blood Pressure 174/77 H Pulse Oximetry 99 Oxygen Delivery Method Room Air BMI result Body Mass Index 36.8 Course Course Course Narrative: This is a rapid medical exam performed by Kira Rodriguez NP: Additional HPI, ROS, PE not included below will be deferred to primary provider. Patient is a 34-year-old Barbadian speaking female with history of HTN, hypertensive encephalopathy, MANUEL, asthma, GERD, MITESH presenting with complaint of chest pain and facial numbness which began today. States has been having pain in the left arm which travels to the chest x 2 mos but today the pain was stronger. Denies dizziness, headache, nausea. BP in triage 239/109 L arm, 241/111 R arm. Plan: EKG, labs, CXR Medical Decision Making Medical Decision Making MDM Narrative: Medical Decision Makin-year-old female with hypertension anxiety asthma with atypical chest discomfort. Troponin negative ECG with nonischemic, virtually unchanged from previous ECG December 2024. Resolution of severe hypertension which is probably white coat related without any treatment in the ED. no chest wall tenderness or injuries. Chest x-ray clear of infiltrates or other pathology Preliminary Favored Differential Diagnosis: , white coat hypertension, GERD, costochondritis less likely ACS Musculoskeletal, atypical among additional considered etiologies Testing Interpreted Independently: Sinus rhythm sub mm ST-elevation only in V3 to V6 no reciprocal changes overall similar appearance December 2024 Radiology or Lab testing Results Reviewed: Not Applicable Consults: Not Applicable Independent Historians/External Chart Reviews: Not Applicable Social Determinants of Health Impacting MDM/Planning: Not Applicable Lab Data 06/01/25 19:06 06/01/25 19:06 Labs: Lab Results 06/01/25 Range/Units 19:06 WBC 14.1 H (4.8-10.8) X10*3/uL RBC 5.02 (4.20-5.50) X10*6/uL Hgb 10.9 L (12.0-16.0) g/dl Hct 35.6 L (37.0-47.0) % MCV 70.9 L (80.0-98.0) fL MCH 21.7 L (27.0-33.0) pg MCHC 30.6 L (31.0-35.0) g/dl RDW 17.9 H (11.0-16.0) % Plt Count 412 H (160-400) X10*3/uL MPV 10.3 (9.4-12.3) fL Immature Gran % (Auto) 0.4 (0.0-0.4) % Neut % (Auto) 78.5 H (45-73) % Lymph % (Auto) 13.7 L (20-40) % [place] % (Auto) 5.0 (2-11) % Eos % (Auto) 2.0 (0-4) % Baso % (Auto) 0.4 (0-2) % Lymph # (Auto) 1.9 (1.2-4.9) X10*3/uL [place] # (Auto) 0.7 (0.1-1.2) X10*3/uL Eos # (Auto) 0.3 (0.0-0.4) X10*3/uL Baso # (Auto) 0.1 (0.0-0.2) X10*3/uL Abs Immat Gran (auto) 0.06 H (0.00-0.03) X10*3/uL Absolute Neuts (auto) 11.0 H (2.0-8.3) x10*3/uL Absolute Nucleated RBC 0.000 (0.0-0.012) X10*3/uL Nucleated RBC % (auto) 0.0 (0.0-0.2) /100WBC Sodium 140 (135-145) mmol/L Potassium 3.5 (3.3-5.1) mmol/L Chloride 101 (96-108) mmol/L Carbon Dioxide 27 (22-29) mmol/L Anion Gap 16 (12-20) BUN 12 (9-16) mg/dL Creatinine 0.75 (0.5-1.4) mg/dL Estim Creat Clear Calc 112.1 Estimated GFR > 60 Random Glucose 119 H (60-115) mg/dL Calcium 9.5 (8.4-10.2) mg/dL Total Bilirubin 0.3 (0.0-1.0) mg/dL AST 23 (5-31) U/L ALT 22 (0-31) U/L Alkaline Phosphatase 92 (39-117) U/L Troponin I High Sens 5.5 D (<3.5-17.0) ng/L Total Protein 8.5 H (6.5-8.0) g/dL Albumin 4.5 (3.5-5.0) g/dL Beta HCG, Quant < 2 mIU/mL Discharge Plan Discharge Clinical Impression: Atypical chest pain Patient Disposition: Home, Self-Care Instructions: Chest Pain (ED) Additional Instructions: You were evaluated for atypical chest pain you had initially very high blood pressure but this resolved without any treatment. Continue your home medications. While here in the emergency department he had an EKG lab work which was reassuring. Continue with your previously scheduled primary physician follow up Prescriptions: No Action albuterol sulfate [ProAir HFA] 90 mcg/actuation HFA aerosol inhaler 2 puff PO QID PRN (Reason: for wheezing) Qty: 8.5 0RF aspirin 81 mg tablet,chewable 81 mg PO DAILY Qty: 30 0RF ferrous sulfate [Feosol] 325 mg (65 mg iron) tablet 325 mg PO DAILY 90 Days Qty: 90 3RF progesterone micronized [Prometrium] 200 mg capsule 200 mg PO BEDTIME 10 Days Qty: 30 0RF Rx Instructions: Take the pill 1 tablet a day cyclically every month from day 15-24 day 1 being the 1st day of next menstrual cycle cyanocobalamin (vitamin B-12) 1,000 mcg capsule 1,000 mcg PO DAILY Qty: 90 3RF ascorbate calcium (vitamin C) 500 mg tablet 500 mg PO DAILY Qty: 180 7RF atorvastatin 40 mg tablet 40 mg PO BEDTIME 90 Days Qty: 90 1RF metoprolol succinate 100 mg tablet extended release 24 hr 100 mg PO DAILY 90 Days Qty: 90 1RF amlodipine 10 mg tablet 10 mg PO DAILY 90 Days Qty: 90 1RF Protocol: Hold for SBP< HOLD for SBP < : 90 hydrochlorothiazide 12.5 mg tablet 12.5 mg PO DAILY 30 Days Qty: 30 1RF triamcinolone acetonide 0.5 % cream 1 appl topical BID PRN (Reason: Allergic Reaction) azithromycin 250 mg tablet 250 mg PO DAILY 4 Days Qty: 4 0RF Rx Instructions: start on day 2 of therapy prednisone 20 mg tablet 40 mg PO DAILY 5 Days Qty: 10 0RF albuterol sulfate 90 mcg/actuation HFA aerosol inhaler 2 puff inhalation Q4-6H PRN (Reason: shortness of breath or wheezing) Qty: 6.7 0RF amoxicillin-pot clavulanate 875-125 mg tablet 1 tab PO BID 7 Days Qty: 14 0RF albuterol sulfate 2.5 mg/0.5 mL solution for nebulization 5 mg inhalation Q4H PRN (Reason: shortness of breath or wheezing) Qty: 30 0RF famotidine [Pepcid] 20 mg tablet 20 mg PO DAILY PRN (Reason: Acid Reflux) diphenhydramine HCl [Benadryl Allergy] 25 mg tablet 25 mg PO BEDTIME PRN (Reason: allergic symptoms) 30 Days Qty: 30 3RF Interventions: ED Discharge Assessment Last Done: 06/02/25 00:29 Discharge Date/Time: 06/02/25 00:30 Print Language: Barbadian
[2025-06-01 19:12] LABS: Hematocrit 35.6 % (37.0-47.0); Hemoglobin 10.9 g/dl (12.0-16.0); Imm Gran Abs Auto 0.06 X10*3/uL (0.00-0.03); Imm Gran Pct Auto 0.4 % (0.0-0.4); Lymphocytes Absolute Auto 1.9 X10*3/uL (1.2-4.9); MANUAL DIFF FLAG NO; Mean Corpuscular HGB Conc 30.6 g/dl (31.0-35.0); Mean Corpuscular Hemoglobin 21.7 pg (27.0-33.0); Mean Corpuscular Volume 70.9 fL (80.0-98.0); NRBC Abs Auto 0.000 X10*3/uL (0.0-0.012); NRBC Pct Auto 0.0 /100WBC (0.0-0.2); Platelet Count 412 X10*3/uL (160-400); Red Blood Count 5.02 X10*6/uL (4.20-5.50); White Blood Count 14.1 X10*3/uL (4.8-10.8)
[2025-06-01 19:35] LABS: Alanine Aminotransferase 22 U/L (0-31); Albumin Level 4.5 g/dL (3.5-5.0); Alkaline Phosphatase 92 U/L (39-117); Anion Gap 16 (12-20); Aspartate Amino Transferase 23 U/L (5-31); Blood Urea Nitrogen 12 mg/dL (9-16); Calcium 9.5 mg/dL (8.4-10.2); Carbon Dioxide 27 mmol/L (22-29); Chloride 101 mmol/L (96-108); Creatinine Clr Calc Pharmacy 112.1; Estimated Glomerular Filt Rate > 60; Potassium 3.5 mmol/L (3.3-5.1); Sodium 140 mmol/L (135-145); Total Protein 8.5 g/dL (6.5-8.0)
[2025-06-01 19:37] LABS: Troponin-I High Sensitivity 5.5 ng/L (<3.5-17.0)
[2025-06-01 22:25] VITALS: BP 157/73; PULSE 92; RESP 16; O2SAT 99
--- NOTE | 2025-06-01 22:28 | PC.NURSE ---
Addendum entered by Le Samson RN 06/01/25 22:29: Patient is a 33-year-old female who presents with sscp radiating down left arm secondary to hypertension. Blood pressure has improved since arrival and chest pain has subsided. Patient has a past medical history significant for obesity, hypertension, GERD and B12 deficiency. Alert and oriented, primarily mozambican speaking. Lungs clear bilat. Respirations even and non-labored. Abdomen large soft, non-tender with positive bowel sounds. Positive pedal pulses with trace LE edema. Original Note: Medical History Dysphagia Anxiety ASCUS with positive high risk HPV DANY I (cervical intraepithelial neoplasia I) Obesities, morbid Allergic rhinitis High blood sugar Asthma Menometrorrhagia GERD (gastroesophageal reflux disease) Iron deficiency anemia Hypertension Vitamin B12 deficiency
[2025-06-02 00:02] VITALS: BP 174/77; PULSE 88; RESP 18; TEMP 36.8; O2SAT 99
[2025-06-02 00:29] VITALS: BP 174/77; PULSE 88; RESP 18; TEMP 36.8; O2SAT 99
== END 2025-06-02 00:30 | disposition home or self-care (01) ==
PROVIDERS: Registered Nurse Emergency; Emergency Provider Emergency Medicine; PCP Internal Medicine
DX: R07.89 Other chest pain (principal); I10 Essential (primary) hypertension; Z79.899 Other long term (current) drug therapy
CPT/HCPCS: 36415; 71046; 80053; 84484; 84702; 85025; 93005; 99283; 99285

== ENCOUNTER → 2025-06-01 17:29 | Outpatient (BNV) | payer OTHER, SELFPAY | PROVIDERS: Emergency Provider Emergency Medicine; PCP Internal Medicine; Visit Provider Internal Medicine Cardiovascular Disease | DX: R07.89 Other chest pain (principal) | CPT/HCPCS: 93010 ==

== ENCOUNTER → 2025-06-01 18:26 | Outpatient (BNV) | payer OTHER, SELFPAY | PROVIDERS: PCP Internal Medicine; Visit Provider Nuclear Medicine | DX: J98.11 Atelectasis (principal) | CPT/HCPCS: 71046 ==

== ENCOUNTER 2025-06-03 15:14 | Outpatient (AMB) | payer OTHER, SELFPAY ==
--- NOTE | 2025-06-03 15:26 | A.OFFPC_ITS ---
Vital Signs 06/03/25 15:29 Height 5 ft 2 in Weight 285 lb 7 oz BMI 52.2 BP 154/82 H Blood Pressure Location Lt radial Position Sitting Pulse 98 Pulse Source Pulse Oximeter Pulse Oximetry (%) 97 Oxygen Delivery Method Room Air Intake Visit Reasons: annual exam Office Communication Professor Required: Yes Office Communication Professor Language: Micronesian Accompanied by: Self / Same As Patient Allergies bee pollen (BEE STINGS) Allergy (Mild, Verified 06/03/25 15:44) ARM SWELLS AND GET RED crab (CRAB) Allergy (Unknown, Verified 06/03/25 15:44) FACE SWELLING, ITCHY enalapril Allergy (Unknown, Verified 06/03/25 15:44) Unknown Medication List - Last Reconciled 06/03/25 by Miranda Cancino PA-C albuterol sulfate 5 mg inhalation Q4H PRN albuterol sulfate 90 mcg/actuation 2 puffs inhalation Q4-6H PRN amlodipine 10 mg See Protocol PO DAILY 90 days ascorbate calcium (vitamin C) 500 mg PO DAILY aspirin 81 mg PO DAILY atorvastatin 40 mg PO BEDTIME 90 days cyanocobalamin (vitamin B-12) 1,000 mcg PO DAILY famotidine (Pepcid) 20 mg PO DAILY PRN ferrous sulfate (Feosol) 325 mg PO DAILY 90 days hydrochlorothiazide 12.5 mg PO DAILY 30 days metoprolol succinate ER 100 mg PO DAILY 90 days progesterone micronized (Prometrium) 200 mg PO BEDTIME 10 days Tobacco use date assessed: 06/03/25 Dental Screening Dental Screen Date: 12/05/23 Did you have a dental visit in the last 12 months?: No Did you have a dental problem in the last 6 months where you did not have access to dental care?: No Was dental information given to patient?: No HPI annual exam HPI Details 34 year old female with past medical his tory of hypertension, GERD, iron deficiency anemia, impaired glucose tolerance, MANUEL last seen 11/2023 coming in for annual exam. In review of the notes, patient was seen in [facility] 06/03/2025 for atypical chest pain workup was negative and patient was discharged home. diplomatic interpreter Rani [id number] was used for the duration of this visit. Presenting with an annual wellness visit and tuberculosis screening. Reports high blood pressure during clinic visits, attributed to anxiety. Previous Holter monitoring showed normal readings outside the clinic. Experiences mild swelling after taking amlodipine, considering compression stockings and medication adjustments. Uses albuterol as needed, reports occasional nocturnal coughing. History of sleep apnea with a previous home study, interested in a hospital- based study. Reports choking episodes three to four times weekly, with a history of a normal swallow study in 2020. vaccines: UTD pap smears: referral to sample stitcher today [facility] Medical History Dysphagia Anxiety ASCUS with positive high risk HPV DANY I (cervical intraepithelial neoplasia I) Obesities, morbid Allergic rhinitis High blood sugar Asthma Menometrorrhagia GERD (gastroesophageal reflux disease) Iron deficiency anemia Hypertension Vitamin B12 deficiency Surgical History No pertinent past surgical history Family History Father No problems noted. Mother Breast cancer Hypertension Maternal Grandfather Hypertension FH: prostate cancer Paternal Grandfather Hypertension Stroke Myocardial infarct Maternal Aunt Hypertension Diabetes Ovarian cancer Paternal Grandmother Diabetes Maternal Grandmother Myocardial infarct Maternal Uncle Bipolar 1 disorder Social History Household Members: Spouse Household Members Other:: mother in law and step son Housing: Apartment Do you presently have visiting nurse or other home services: No Alcohol intake: unknown Patient Tobacco Use Status: Never used Tobacco e-Cigarette/Vaping Use: Never Used Second Hand Smoke Exposure: No service: No Current occupational status: employed Current occupational exposures/hazards: No Cognitive needs: No Hearing needs: No Vision needs: No Female Reproductive History Menstrual Age of Menarche: 12 Questionnaire PHQ-9 Over the last 2 weeks, how often have you been bothered by any of the following problems? 1. Little interest or pleasure in doing things: not at all 2. Feeling down, depressed, or hopeless: not at all 3. Trouble falling or staying asleep, or sleeping too much: not at all 4. Feeling tired or having little energy: not at all 5. Poor appetite or overeating: not at all 6. Feeling bad about yourself - or that you are a failure or have let yourself or your family down: not at all 7. Trouble concentrating on things, such as reading the newspaper or watching television: not at all 8. Moving or speaking so slowly that other people could have noticed. Or the opposite - being so fidgety or restless that you have been moving around a lot more than usual: not at all 9. Thoughts that you would be better off or of hurting yourself in some way: not at all Total score: 0 Depression Screening Interpretation: Negative Depression Screening Done: Yes 84759 - PHQ-9 Billing: Yes Source: Developed by Drs. López Veras, Jenniffer Bush, Hilton Rothman and colleagues, with an educational tiffanie from [employer]. Thrive Questionnaire Date Thrive assessed: 06/03/25 I am a: Patient What is your living situation today?: I have a steady place to live Within the past 12 months, did the food you bought not last and you didn't have the money to get more?: Never true Within the past 12 months, did you worry whether your food would run out before you got money to buy more?: Never true Do you have trouble paying for medicines?: No Do you have trouble getting transportation to medical appointments?: No Do you have trouble paying your heating and electricity bill?: No Do you have trouble taking care of your child, family member or friend?: No Do you have trouble with day-to-day activities such as bathing, preparing meals, shopping, managing finances, etc.?: No Are you currently unemployed and looking for a job?: No Are you interested in more education?: Yes Please select the resources that you would like help with: None Currently or been in a relationship where the following occur: No concerns reported THRIVE Score: 0 AUDIT C Alcohol Use Questionnaire (AUDIT-C) 1. How often do you have a drink containing alcohol?: Never Total Score: 0 LEATHA-7 AMB Questionnaire LEATHA-7 Date LEATHA - 7 assessed: 12/05/23 Feeling nervous, anxious, or on edge: 0 = Not at all Not being able to stop or control worryin = Not at all Worrying too much about different things: 0 = Not at all Trouble relaxin = Not at all Being so restless that it is hard to sit still: 0 = Not at all Becoming easily annoyed or irritable: 0 = Not at all Feeling afraid as if something awful might happen: 0 = Not at all Total LEATHA-7 score (0-4 normal; 5-9 mild; 10-14 moderate; 15-21 severe): 0 Source: Developed by Drs. López Veras, Jenniffer Bush, Hilton Rothman and colleagues, with an educational tiffanie from [employer]. LEATHA-7 Assessment Billing LEATHA-7 Assessment Tool: LEATHA-7 Assessment 41830 Review of Systems Const Denies body aches, Denies fatigue, Denies fever(s), Denies frequent falls, Denies headache(s) and Denies weakness Eyes Reports no additional complaints and Denies change in vision ENT Reports dysphagia, Denies dizziness, Denies facial pain, Denies headache(s), Denies nasal congestion, Denies odynophagia and Reports sore throat Card Denies chest pain, Denies irregular heart rhythm, Denies leg edema, Denies lightheadedness and Denies dyspnea Resp Denies cough and Denies dyspnea GI Denies constipation, Reports dysphagia, Denies dyspepsia, Denies diarrhea, Denies nausea, Denies odynophagia and Denies vomiting Denies urinary frequency, Denies dysuria, Denies urinary hesitancy and Denies urinary urgency Musc Denies back pain and Denies myalgias Skin/Breast Reports system reviewed and no additional complaints, except as documented Neuro Denies dizziness, Denies frequent falls, Denies headache(s) and Denies weakness Psych Reports no additional complaints Endo Denies fatigue Physical exam (Primary Care) Vital Signs: Last Vital Signs Pulse 98 06/03/25 15:29 BP 154/82 H 06/03/25 15:29 Pulse Ox 97 06/03/25 15:29 Oxygen Delivery Method Room Air 06/03/25 15:29 BMI result Body Mass Index 52.2 Tobacco/Smoking Status: Tobacco use Status Tobacco use date assessed 06/03/25 06/03/25 15:33 Patient Tobacco Use Status Never used Tobacco 06/03/25 15:33 Tobacco use type 08/26/24 08:19 e-Cigarette/Vaping Use Never Used 06/03/25 15:33 PHQ-9: PHQ-9 Score PHQ-9: Total score 0 06/04/25 07:39 Depression Screening Interpretation: Negative Thrive Assessment: Date of Thrive Assessment Date Thrive assessed 06/03/25 06/03/25 15:33 Currently or been in a relationship where the following occur: No concerns reported Const General: cooperative, healthy appearing, comfortable and no acute distress Orientation/consciousness: patient oriented x3 HENMT Head: Yes normocephalic Ears: hearing grossly normal bilaterally, external ears normal, TM's normal bilaterally and EAC's normal General nose exam: Normal external nose present Face and sinus: Yes normal facial exam and Yes sinuses nontender Mouth: Normal oral and palatal mucosa present and tongue normal Throat: Yes posterior oropharynx normal Eyes General: appearance normal, both eyes and all related structures Conjunctivae: conjunctivae normal Pupils: Equal, round and reactive pupils present EOM: EOMs intact bilaterally and No Nystagmus present Neck Neck: Yes normal visual inspection, Yes full ROM and Yes no lymphadenopathy Chest Chest palpation & inspection: normal inspection of the chest Resp Effort & Inspection: normal respiratory effort Auscultation: clear to auscultation bilaterally, no crackles, no rales, no rhonchi, no wheezes and breath sounds present Cardio Rate: regular rate Rhythm: regular rhythm Peripheral pulses: radial pulses present and dorsalis pedis present GI Inspection: Yes normal to inspection and No Abdominal wall edema Palpation (GI): Soft to palpation, not firm and nontender Auscultation: normal bowel sounds Rectal Exam - Female: deferred General: Yes no CVA tenderness Back/Spine/Pelvis Back: no CVA tenderness Skin General skin exam: no rashes or lesions noted Neuro General: patient oriented x3 Cranial nerves: Yes Equal, round and reactive pupils present, Yes Midline tongue present, Yes Ability to bilaterally elevate shoulders present and No Nystagmus present Gait exam (Neuro): Normal gait present Extrem General: Yes normal to inspection, Yes full ROM, No no pedal edema and No edema Psych Speech and movement: Normal speech and movement present Affect: normal affect Insight: Good insight present (Psych) Judgement: Good judgement present (Psych) Office Meds tuberculin PPD 5 tub. unit/0.1 mL intradermal injection solution Performing Provider: Miranda Cancino PA-C Performing Location: [facility] Administered by: Michaela Weathers RN on 06/03/25 15:57 Dose Route Admin Location Dispensed Lot Number Expiration Date [facility] Hand Assembler 0.1 mL intradermal 0.1 mL [id number] 08/21/26 Total Dispensed Waste 0.1 mL 0 % Immunizations pneumoc 20-cary conj-dip cr(PF) 0.5 mL IM syringe Performing Provider: Miranda Cancino PA-C Performing Location: [facility] Administered by: Michaela Weathers RN on 06/03/25 16:05 Dose Route Admin Location Dispensed Lot Number Expiration Date [employer] Hand Assembler 0.5 mL IM Right Deltoid 0.5 mL [id number] 08/20/27 8306-5027-79 [place] [facility] Total Dispensed Waste 0.5 mL 0 % VIS Given Date VIS Provided VIS Publication Date 06/03/25 Single Vaccine 25 Eligibility Eligibility Date Funding Source Not [facility] Eligible 06/03/25 Private Coding Level of Care Code Est Pt Prev Care 18-39y([id number]) Diagnoses Annual physical exam Z00.00 MANUEL (obstructive sleep apnea) G47.33 Asthma J45.909 Gastroesophageal reflux disease without esophagitis K21.9 Esophagitis presence: without esophagitis Impaired glucose tolerance R73.02 Uncontrolled hypertension I10 Dysphagia R13.10 Additional Codes LEATHA-7 Assessment Billing - LEATHA-7 Assessment Tool: LEATHA-7 Assessment 82168 ([id number]) PHQ-9 - 82254 - PHQ-9 Billing: Yes ([id number]) Assessment & Plan Assessment & Plan (1) Annual physical exam: Code(s): Z00.00 - Encounter for general adult medical examination without abnormal findings Category: Medical Plan: Patient is overdue for a Pap smear of the referral was placed to gynecology today. Otherwise she is up-to-date on all recommended routine screenings and vaccinations for her age. She received a TB plan and pneumonia vaccine today while in the office. Blood work is not up-to-date and has been ordered today. She will follow up in 2 months to review blood pressure medications or sooner as needed. (2) MANUEL (obstructive sleep apnea): Code(s): G47.33 - Obstructive sleep apnea (adult) (pediatric) Category: Medical Plan: Patient has a history of obstructive sleep apnea and is requesting an additional sleep study for consideration for CPAP. Referral was placed to sleep medicine as she is refusing a home sleep study (3) Asthma: Code(s): J45.909 - Unspecified asthma, uncomplicated Category: Medical Plan: Asthma currently controlled on present medications. Continue on albuterol as needed. Avoid triggers such as allergies. (4) GERD (gastroesophageal reflux disease): Code(s): K21.9 - Gastro-esophageal reflux disease without esophagitis Category: Medical Qualifiers: Esophagitis presence: without esophagitis Qualified Code(s): K21.9 - Gastro-esophageal reflux disease without esophagitis Plan: Avoid trigger foods such as citrus, tomato products, soda, caffeine, spicy foods and other foods that may be irritating to your stomach. Avoid laying flat 3-4 hours after eating and elevate the head of the bed 30 degrees to prevent acid from moving into the esophagus. Continue on famotidine (5) Impaired glucose tolerance: Code(s): R73.02 - Impaired glucose tolerance (oral) Category: Medical Plan: Decrease the amount of carbohydrates such as pasta, bread, rice, and potatoes and limit the amount of sweets. Although fruits are generally healthy they should be eaten in moderation as they are still high in sugar. Ordered for updated blood work (6) Uncontrolled hypertension: Code(s): I10 - Essential (primary) hypertension Category: Medical Plan: Blood pressure is not well controlled today in the office and we do not have at home values to compare with the blood pressures to. She does have a known history of hypertension and unclear if she is truly taking her amlodipine as this has not been refilled in several months. Her blood pressure in the office is 154/82 plan to increase hydrochlorothiazide to twice daily and advised patient to take blood pressures at home and bring log to next visit. Referral was also placed to Nephrology that patient request (7) Dysphagia: Code(s): R13.10 - Dysphagia, unspecified Category: Medical Plan: Patient complaining of difficulty swallowing and frequent choking episodes plan to order for barium swallow for further evaluation Plan The plan involves increasing hydrochlorothiazide dosage to manage hypertension, with monitoring for adverse effects. Compression stockings are recommended for leg edema, and medication adjustments will be considered if necessary. Referrals are made for a sleep study to evaluate sleep apnea and a thyroid sonogram due to family history. A swallow study is also advised to assess dysphagia. Preventative measures include tuberculosis screening and follow-up with specialists, including a kidney specialist and a c developer. This note was constructed using voice recognition software. While every effort has been made to ensure accuracy and wedding transportation driver, still areas may have been included sometimes these areas may affect the content or meeting of the given symptoms. Total time spent caring for the patient today was 30 minutes. This includes time spent before the visit reviewing the chart, time spent during the visit, and time spent after the visit and documentation. Patient was informed and verbally consented to the use of an ambient scribe for clinic note documentation during this visit. Orders: Orders Pneumococcal 20 Immunization 06/03/25 Z23 - Encounter for immunization Hemoglobin A1c 06/03/25 Z13.1 - Encounter for screening for diabetes mellitus Vitamin B12 and Folate 06/03/25 Z13.21 - Encounter for screening for nutritional disorder Vitamin D 25-OH Total 06/03/25 Z13.21 - Encounter for screening for nutritional disorder FL barium swallow 06/03/25 R13.10 - Dysphagia, unspecified AMB PPD Planted 06/03/25 Z00.00 - Encounter for general adult medical examination without abnormal findings, Z11.1 - Encounter for screening for r espiratory tuberculosis Lipid Panel 06/03/25 Z13.220 - Encounter for screening for lipoid disorders Comprehensive Met. Panel 06/03/25 I10 - Essential (primary) hypertension TSH reflex Free T4 06/03/25 Z13.29 - Encounter for screening for other suspected endocrine disorder AMB PPD Planted 06/03/25 Z11.1 - Encounter for screening for respiratory tuberculosis Referrals Nephrology Referral I10 - Essential (primary) hypertension Sleep Medicine Referral G47.33 - Obstructive sleep apnea (adult) (pediatric) OPERATING ROOM TECH Referral N93.9 - Abnormal uterine and vaginal bleeding, unspecified, Z01.419 - Encounter for gynecological examination (general) (routine) without abnormal findings Optometry Referral I10 - Essential (primary) hypertension Medications: New compr.stocking,knee,long,large As directed; 15-20 mmHG of pressure 12 ea 0RF tuberculin PPD 0.1 mL intradermal ONCE 0.1 mL 0RF Z11.1 - Encounter for screening for respiratory tuberculosis Changed From hydrochlorothiazide 12.5 mg PO DAILY 30 days 30 tabs 1RF I10 - Essential (primary) hypertension To hydrochlorothiazide 12.5 mg PO BID 60 tabs 1RF 30 days I10 - Essential (primary) hypertension Refilled amlodipine 10 mg See Protocol PO DAILY 90 tabs 1RF 90 days I10 - Essential (primary) hypertension metoprolol succinate ER 100 mg PO DAILY 90 tabs 1RF 90 days I10 - Essential (primary) hypertension atorvastatin 40 mg PO BEDTIME 90 tabs 1RF 90 days I10 - Essential (primary) hypertension
[2025-06-03 15:29] VITALS: BP 154/82; PULSE 98; O2SAT 97; BMI 52.2
--- NOTE | 2025-06-03 16:03 | MHC.OFFVIS ---
Vital Signs 06/03/25 15:29 Height 5 ft 2 in Weight 285 lb 7 oz BMI 52.2 BP 154/82 H Blood Pressure Location Lt radial Position Sitting Pulse 98 Pulse Source Pulse Oximeter Pulse Oximetry (%) 97 Oxygen Delivery Method Room Air Intake Visit Reasons: annual exam Allergies bee pollen (BEE STINGS) Allergy (Mild, Verified 06/03/25 15:44) ARM SWELLS AND GET RED crab (CRAB) Allergy (Unknown, Verified 06/03/25 15:44) FACE SWELLING, ITCHY enalapril Allergy (Unknown, Verified 06/03/25 15:44) Unknown Medication List - Last Reconciled 06/03/25 by Miranda Cancino PA-C albuterol sulfate 5 mg inhalation Q4H PRN albuterol sulfate 90 mcg/actuation 2 puffs inhalation Q4-6H PRN amlodipine 10 mg See Protocol PO DAILY 90 days ascorbate calcium (vitamin C) 500 mg PO DAILY aspirin 81 mg PO DAILY atorvastatin 40 mg PO BEDTIME 90 days cyanocobalamin (vitamin B-12) 1,000 mcg PO DAILY famotidine (Pepcid) 20 mg PO DAILY PRN ferrous sulfate (Feosol) 325 mg PO DAILY 90 days hydrochlorothiazide 12.5 mg PO DAILY 30 days metoprolol succinate ER 100 mg PO DAILY 90 days progesterone micronized (Prometrium) 200 mg PO BEDTIME 10 days PFSH Medical History Dysphagia Anxiety ASCUS with positive high risk HPV DANY I (cervical intraepithelial neoplasia I) Obesities, morbid Allergic rhinitis High blood sugar Asthma Menometrorrhagia GERD (gastroesophageal reflux disease) Iron deficiency anemia Hypertension Vitamin B12 deficiency Surgical History No pertinent past surgical history Family History Father No problems noted. Mother Breast cancer Hypertension Maternal Grandfather Hypertension FH: prostate cancer Paternal Grandfather Hypertension Stroke Myocardial infarct Maternal Aunt Hypertension Diabetes Ovarian cancer Paternal Grandmother Diabetes Maternal Grandmother Myocardial infarct Maternal Uncle Bipolar 1 disorder Social History Household Members: Spouse Household Members Other:: mother in law and step son Housing: Apartment Do you presently have visiting nurse or other home services: No Alcohol intake: unknown Patient Tobacco Use Status: Never used Tobacco e-Cigarette/Vaping Use: Never Used Second Hand Smoke Exposure: No service: No Current occupational status: employed Current occupational exposures/hazards: No Cognitive needs: No Hearing needs: No Vision needs: No Female Reproductive History Menstrual Age of Menarche: 12 Physical Exam Vital Signs: Last Vital Signs Pulse 98 06/03/25 15:29 BP 154/82 H 06/03/25 15:29 Pulse Ox 97 06/03/25 15:29 Oxygen Delivery Method Room Air 06/03/25 15:29 BMI result Body Mass Index 52.2 Office Meds tuberculin PPD 5 tub. unit/0.1 mL intradermal injection solution Performing Provider: Miranda Cancino PA-C Performing [facility] [place] [facility] Administered by: Michaela Weathers RN on 06/03/25 15:57 Dose Route Admin Location Dispensed Lot Number Expiration Date [facility] Blister Packing Machine Tender 0.1 mL intradermal 0.1 mL [id number] 08/21/26 Total Dispensed Waste 0.1 mL 0 % Assessment & Plan Assessment & Plan (1) Annual physical exam: Code(s): Z00.00 - Encounter for general adult medical examination without abnormal findings Category: Medical (2) MANUEL (obstructive sleep apnea): Code(s): G47.33 - Obstructive sleep apnea (adult) (pediatric) Category: Medical (3) Asthma: Code(s): J45.909 - Unspecified asthma, uncomplicated Category: Medical (4) GERD (gastroesophageal reflux disease): Code(s): K21.9 - Gastro-esophageal reflux disease without esophagitis Category: Medical Qualifiers: Esophagitis presence: without esophagitis Qualified Code(s): K21.9 - Gastro-esophageal reflux disease without esophagitis (5) Impaired glucose tolerance: Code(s): R73.02 - Impaired glucose tolerance (oral) Category: Medical (6) Uncontrolled hypertension: Code(s): I10 - Essential (primary) hypertension Category: Medical Orders: Orders Pneumococcal 20 Immunization Today Z23 - Encounter for immunization Hemoglobin A1c Today Z13.1 - Encounter for screening for diabetes mellitus Vitamin B12 and Folate Today Z13.21 - Encounter for screening for nutritional disorder Vitamin D 25-OH Total Today Z13.21 - Encounter for screening for nutritional disorder AMB PPD Planted Today Z00.00 - Encounter for general adult medical examination without abnormal findings, Z11.1 - Encounter for screening for respiratory tuberculosis Lipid Panel Today Z13.220 - Encounter for screening for lipoid disorders Comprehensive Met. Panel Today I10 - Essential (primary) hypertension TSH reflex Free T4 Today Z13.29 - Encounter for screening for other suspected endocrine disorder AMB PPD Planted Today Z11.1 - Encounter for screening for respiratory tuberculosis Referrals Nephrology Referral I10 - Essential (primary) hypertension Sleep Medicine Referral G47.33 - Obstructive sleep apnea (adult) (pediatric) CLAY [employer]ER Referral N93.9 - Abnormal uterine and vaginal bleeding, unspecified, Z01.419 - Encounter for gynecological examination (general) (routine) without abnormal findings Optometry Referral I10 - Essential (primary) hypertension Medications: New compr.stocking,knee,long,large As directed; 15-20 mmHG of pressure 12 ea 0RF tuberculin PPD 0.1 mL intradermal ONCE 0.1 mL 0RF Z11.1 - Encounter for screening for respiratory tuberculosis pneumoc 20-cary conj-dip cr(PF) 0.5 mL IM ONCE 0.5 mL 0RF Z23 - Encounter for immunization Changed From hydrochlorothiazide 12.5 mg PO DAILY 30 days 30 tabs 1RF I10 - Essential (primary) hypertension To hydrochlorothiazide 12.5 mg PO BID 60 tabs 1RF 30 days I10 - Essential (primary) hypertension Refilled amlodipine 10 mg See Protocol PO DAILY 90 tabs 1RF 90 days I10 - Essential (primary) hypertension metoprolol succinate ER 100 mg PO DAILY 90 tabs 1RF 90 days I10 - Essential (primary) hypertension atorvastatin 40 mg PO BEDTIME 90 tabs 1RF 90 days I10 - Essential (primary) hypertension Coding Diagnoses Annual physical exam Z00.00 MANUEL (obstructive sleep apnea) G47.33 Asthma J45.909 Gastroesophageal reflux disease without esophagitis K21.9 Esophagitis presence: without esophagitis Impaired glucose tolerance R73.02 Uncontrolled hypertension I10
== END 2025-06-03 16:22 | disposition home or self-care (01) ==
LOC: HO.HMCH 15:15
PROVIDERS: PCP Internal Medicine
DX: Z00.00 Encounter for general adult medical examination without abnormal findings (principal); G47.33 Obstructive sleep apnea (adult) (pediatric); J45.909 Unspecified asthma, uncomplicated; K21.9 Gastro-esophageal reflux disease without esophagitis; R73.02 Impaired glucose tolerance (oral); I10 Essential (primary) hypertension; R13.10 Dysphagia, unspecified

== ENCOUNTER → 2025-06-03 15:14 | Outpatient (BNVA) | payer OTHER, SELFPAY | PROVIDERS: PCP Internal Medicine | DX: Z00.00 Encounter for general adult medical examination without abnormal findings (principal); G47.33 Obstructive sleep apnea (adult) (pediatric); K21.9 Gastro-esophageal reflux disease without esophagitis; I10 Essential (primary) hypertension; D50.9 Iron deficiency anemia, unspecified; R73.01 Impaired fasting glucose; R73.02 Impaired glucose tolerance (oral); R13.10 Dysphagia, unspecified; N93.9 Abnormal uterine and vaginal bleeding, unspecified; Z23 Encounter for immunization | CPT/HCPCS: 86580; 90471; 90677; 96127; 99395 ==

== ENCOUNTER 2025-07-08 14:39 | Outpatient (AMB) | payer OTHER, SELFPAY ==
[2025-07-08 14:56] VITALS: BP 172/90
--- NOTE | 2025-07-08 14:56 | HO.NEPHOV_ITS ---
Vital Signs 07/08/25 14:56 Height 5 ft 2 in BP 172/90 H Blood Pressure Location Lt radial Position Sitting Intake Visit Reasons: INT: Essential (primary) hypertension Sheet Mill Supervisor Required: Yes Sheet Mill Supervisor Name: Yris [id number] Accompanied by: Spouse Allergies bee pollen (BEE STINGS) Allergy (Mild, Verified 07/08/25 14:58) ARM SWELLS AND GET RED crab (CRAB) Allergy (Unknown, Verified 07/08/25 14:58) FACE SWELLING, ITCHY enalapril Allergy (Unknown, Verified 07/08/25 14:58) Unknown Medication List - Last Reconciled 07/08/25 by Leon Hicks MD albuterol sulfate 5 mg inhalation Q4H PRN albuterol sulfate 90 mcg/actuation 2 puffs inhalation Q4-6H PRN amlodipine 10 mg See Protocol PO DAILY 90 days ascorbate calcium (vitamin C) 500 mg PO DAILY aspirin 81 mg PO DAILY atorvastatin 40 mg PO BEDTIME 90 days compr.stocking,knee,long,large As directed; 15-20 mmHG of pressure cyanocobalamin (vitamin B-12) 1,000 mcg PO DAILY famotidine (Pepcid) 20 mg PO DAILY PRN hydrochlorothiazide 12.5 mg PO BID 30 days metoprolol succinate ER 100 mg PO DAILY 90 days HPI Comments Details: The patient is a 34-year-old female presenting with hypertension management. Blood pressure is high during clinic visits but normal outside, with a history of hypertension since age 15. History of transient ischemic attack (TIA) noted. Hyperlipidemia is present, though duration is unspecified. Sleep apnea is untreated currently, with plans to address it soon. Previous CPAP use improved blood pressure to 110/70 mmHg. Medical History: - Hypertension since age 15 - History of Transient Ischemic Attack (TIA) - Hyperlipidemia - Sleep Apnea Social History: - The patient has stopped drinking soda as part of dietary modifications. [facility] Medical History Dysphagia Anxiety ASCUS with positive high risk HPV DANY I (cervical intraepithelial neoplasia I) Obesities, morbid Allergic rhinitis High blood sugar Asthma Menometrorrhagia GERD (gastroesophageal reflux disease) Iron deficiency anemia Hypertension Vitamin B12 deficiency Surgical History No pertinent past surgical history Family History Father No problems noted. Mother Breast cancer Hypertension Maternal Grandfather Hypertension FH: prostate cancer Paternal Grandfather Hypertension Stroke Myocardial infarct Maternal Aunt Hypertension Diabetes Ovarian cancer Paternal Grandmother Diabetes Maternal Grandmother Myocardial infarct Maternal Uncle Bipolar 1 disorder Social History Household Members: Spouse Household Members Other:: mother in law and step son Housing: Apartment Do you presently have visiting nurse or other home services: No Alcohol intake: unknown Patient Tobacco Use Status: Never used Tobacco e-Cigarette/Vaping Use: Never Used Second Hand Smoke Exposure: No service: No Current occupational status: employed Current occupational exposures/hazards: No Cognitive needs: No Hearing needs: No Vision needs: No Female Reproductive History Menstrual Age of Menarche: 12 Review of Systems Const Denies fever(s) and Denies weight loss Card Denies chest pain Resp Denies cough and Denies hemoptysis GI Denies abdominal pain, Denies diarrhea and Denies nausea Musc Denies back pain Neuro Denies focal weakness Physical Exam Vital Signs: Last Vital Signs BP 172/90 H 07/08/25 14:56 Comfortable Neck supple no JVD. Lungs entry equal no rales. Heart S1-S2 heard no gallop or rub. Abdomen soft nontender. Neuro alert awake oriented. No asterixis. Extremities no edema. Results Reviewed Nephrology Results: Hgb, (12.0-16.0) 10.9 g/dl L 06/01/25 WBC, (4.8-10.8) 14.1 X10*3/uL H 06/01/25 Plt Count, (160-400) 412 X10*3/uL H 06/01/25 Sodium, (135-145) 140 mmol/L 06/01/25 Potassium, (3.3-5.1) 3.5 mmol/L 06/01/25 Chloride, (96-108) 101 mmol/L 06/01/25 Carbon Dioxide, (22-29) 27 mmol/L 06/01/25 BUN, (9-16) 12 mg/dL 06/01/25 Creatinine, (0.5-1.4) 0.75 mg/dL 06/01/25 Calcium, (8.4-10.2) 9.5 mg/dL 06/01/25 Assessment & Plan Assessment & Plan (1) Hypertension: Comment: white coat hypertension November 2019 echo May 2017 ejection fraction 55% Code(s): I10 - Essential (primary) hypertension Category: Medical Qualifiers: Hypertension type: primary hypertension Qualified Code(s): I10 - Essential (primary) hypertension Plan Hypertension in the setting of obesity obstructive sleep apnea. There could be a component of white coat hypertension based on the history. She tells me that her blood pressure has been well controlled at home and usually elevated in the doctor's office setting. Next step is to obtain a 24 hour ambulatory blood pressure monitoring. Based on this we can adjust her medications. Nevertheless she will benefit from weight loss. She has a repeat sleep evaluation in August 2025. She will also benefit from using CPAP if she indeed has obstructive sleep apnea Encouraged her to stay on low-sodium diet. No changes were made today. Orders: Orders AMB 24 HR B/P Monitor PLACEMENT Today I10 - Essential (primary) hypertension Coding Level of Care Code New Pt Level 4 (54119) Diagnoses Essential hypertension I10 Hypertension type: primary hypertension
== END 2025-07-08 15:13 | disposition home or self-care (01) ==
LOC: HO.HKAM 14:39
PROVIDERS: PCP Internal Medicine; Visit Provider Internal Medicine Hypertension Specialist
DX: I10 Essential (primary) hypertension (principal)
CPT/HCPCS: 99204

== ENCOUNTER → 2025-07-08 14:39 | Outpatient (BNVA) | payer OTHER, SELFPAY | PROVIDERS: PCP Internal Medicine; Visit Provider Internal Medicine Hypertension Specialist | DX: I10 Essential (primary) hypertension (principal) | CPT/HCPCS: 99202 ==

== ENCOUNTER 2025-09-03 14:15 | Outpatient (AMB) | payer OTHER, SELFPAY ==
--- NOTE | 2025-09-03 14:24 | HO.NEPHOV_ITS ---
Vital Signs 09/03/25 14:26 Height 5 ft 2 in BP 180/90 H Blood Pressure Location Lt radial Position Sitting Pulse 90 Pulse Source Pulse Oximeter Pulse Oximetry (%) 98 Oxygen Delivery Method Room Air Intake Visit Reasons: BPM Results r/s 08/26 Shipping Technician Required: Yes Shipping Technician Name: [id number] Allergies bee pollen (BEE STINGS) Allergy (Mild, Verified 09/03/25 14:27) ARM SWELLS AND GET RED crab (CRAB) Allergy (Unknown, Verified 09/03/25 14:27) FACE SWELLING, ITCHY enalapril Allergy (Unknown, Verified 09/03/25 14:27) Unknown Medication List - Last Reconciled 09/03/25 by Leon Hicks MD albuterol sulfate 5 mg inhalation Q4H PRN albuterol sulfate 90 mcg/actuation 2 puffs inhalation Q4-6H PRN amlodipine 10 mg See Protocol PO DAILY 90 days ascorbate calcium (vitamin C) 500 mg PO DAILY aspirin 81 mg PO DAILY atorvastatin 40 mg PO BEDTIME 90 days compr.stocking,knee,long,large As directed; 15-20 mmHG of pressure cyanocobalamin (vitamin B-12) 1,000 mcg PO DAILY famotidine (Pepcid) 20 mg PO DAILY PRN hydrochlorothiazide 12.5 mg PO BID 30 days metoprolol succinate ER 100 mg PO DAILY 90 days HPI Comments Details: The patient is a 34-year-old female presenting with hypertension management. Blood pressure is high during clinic visits but normal outside, with a history of hypertension since age 15. History of transient ischemic attack (TIA) noted. Hyperlipidemia is present, though duration is unspecified. Sleep apnea is untreated currently, with plans to address it soon. Previous CPAP use improved blood pressure to 110/70 mmHg. Medical History: - Hypertension since age 15 - History of Transient Ischemic Attack (TIA) - Hyperlipidemia - Sleep Apnea Social History: - The patient has stopped drinking soda as part of dietary modifications. 09/03/25 Underwent ABPM [facility] Medical History Dysphagia Anxiety ASCUS with positive high risk HPV DANY I (cervical intraepithelial neoplasia I) Obesities, morbid Allergic rhinitis High blood sugar Asthma Menometrorrhagia GERD (gastroesophageal reflux disease) Iron deficiency anemia Hypertension Vitamin B12 deficiency Surgical History No pertinent past surgical history Family History Father No problems noted. Mother Breast cancer Hypertension Maternal Grandfather Hypertension FH: prostate cancer Paternal Grandfather Hypertension Stroke Myocardial infarct Maternal Aunt Hypertension Diabetes Ovarian cancer Paternal Grandmother Diabetes Maternal Grandmother Myocardial infarct Maternal Uncle Bipolar 1 disorder Social History Household Members: Spouse Household Members Other:: mother in law and step son Housing: Apartment Do you presently have visiting nurse or other home services: No Alcohol intake: unknown Patient Tobacco Use Status: Never used Tobacco e-Cigarette/Vaping Use: Never Used Second Hand Smoke Exposure: No service: No Current occupational status: employed Current occupational exposures/hazards: No Cognitive needs: No Hearing needs: No Vision needs: No Female Reproductive History Menstrual Age of Menarche: 12 Physical Exam Vital Signs: Last Vital Signs Pulse 90 09/03/25 14:26 BP 180/90 H 09/03/25 14:26 Pulse Ox 98 09/03/25 14:26 Oxygen Delivery Method Room Air 09/03/25 14:26 Comfortable Neck supple no JVD. Lungs entry equal no rales. Heart S1-S2 heard no gallop or rub. Abdomen soft nontender. Neuro alert awake oriented. No asterixis. Extremities no edema. Office Procedures 24 B/P Monitor Interpretation Details: Well controlled HTN Super imposed white coat effect Dipping present . CPT: 36953 24 Hour Blood Pressure Monitor Reading Procedure code (CPT) selection complete Results Reviewed Nephrology Results: Hgb, (12.0-16.0) 10.9 g/dl L 06/01/25 WBC, (4.8-10.8) 14.1 X10*3/uL H 06/01/25 Plt Count, (160-400) 412 X10*3/uL H 06/01/25 Sodium, (135-145) 140 mmol/L 06/01/25 Potassium, (3.3-5.1) 3.5 mmol/L 06/01/25 Chloride, (96-108) 101 mmol/L 06/01/25 Carbon Dioxide, (22-29) 27 mmol/L 06/01/25 BUN, (9-16) 12 mg/dL 06/01/25 Creatinine, (0.5-1.4) 0.75 mg/dL 06/01/25 Calcium, (8.4-10.2) 9.5 mg/dL 06/01/25 Assessment & Plan Assessment & Plan (1) Hypertension: Comment: white coat hypertension November 2019 echo May 2017 ejection fraction 55% Code(s): I10 - Essential (primary) hypertension Category: Medical Qualifiers: Hypertension type: primary hypertension Qualified Code(s): I10 - Essential (primary) hypertension Plan Hypertension in the setting of obesity obstructive sleep apnea. There could be a component of white coat hypertension based on the history. She tells me that her blood pressure has been well controlled at home and usually elevated in the doctor's office setting. Next step is to obtain a 24 hour ambulatory blood pressure monitoring. Based on this we can adjust her medications. Nevertheless she will benefit from weight loss. She has a repeat sleep evaluation in August 2025. She will also benefit from using CPAP if she indeed has obstructive sleep apnea Encouraged her to stay on low-sodium diet. No changes were made today. 09/03/25 BAsed on ABPM, she has wel controlled HTN with superimposed white coat effect NO need to change medications MOnitor BP at home Lifestyle modifications- weight loss, low slat diet and exercise Orders: Orders AMB 24 HR B/P Monitor INTERPRETATION Today I10 - Essential (primary) hypertension Coding Level of Care Code Est Pt Level 4 (29579) Diagnoses Essential hypertension I10 Hypertension type: primary hypertension CPT Codes - CPT: 37070 24 Hour Blood Pressure Monitor Reading ([id number])
[2025-09-03 14:26] VITALS: BP 180/90; PULSE 90; O2SAT 98
== END 2025-09-03 14:44 | disposition home or self-care (01) ==
LOC: HO.HKA 14:16
PROVIDERS: PCP Internal Medicine; Visit Provider Internal Medicine Hypertension Specialist
DX: I10 Essential (primary) hypertension (principal)
CPT/HCPCS: 93790; 99214

== ENCOUNTER → 2025-09-03 14:15 | Outpatient (BNVA) | payer OTHER, SELFPAY | PROVIDERS: PCP Internal Medicine; Visit Provider Internal Medicine Hypertension Specialist | DX: I10 Essential (primary) hypertension (principal) | CPT/HCPCS: 93786; 93788; 99212 ==